=== PATIENT | male | born 1975 ===

== ENCOUNTER 2017-05-17 21:02 | Inpatient (IN) | payer MEDICAID ==
[2017-05-17 22:27] VITALS: BMI 34.4
--- NOTE | 2017-05-17 23:14 | ED PDOC ---
Lower Extremity Pain/Injury Time Seen by Provider: 05/17/17 22:47 Chief Complaint (Nursing): Lower Extremity Problem/Injury Chief Complaint (Provider): Right foot pain History Per: Family Onset/Duration Of Symptoms: Unknown Additional Complaint(s): History obtained from sisters and patient. Sisters report that the patient's history may be unreliable because of paranoid schizophrenia and pt may not be forthcoming with history. Foot pain moderate to severe for 1 week, constant and worsening, worse with touch. Associated with foul-smelling wound and swelling to toes. PMD Sancho Rueda [place]. Past Medical History Reviewed: Historical Data, Nursing Documentation, Vital Signs Vital Signs: Last Vital Signs Temp 98.7 F 05/17/17 22:28 Pulse 133 H 05/17/17 22:28 Resp 18 05/17/17 22:28 BP 100/70 05/17/17 22:28 Pulse Ox 98 05/17/17 22:28 - Medical History PMH: Diabetes, Schizophrenia - Surgical History Surgical History: No Surg Hx - Family History Family History: States: Diabetes, Hypertension - Social History Current smoker - smoking cessation education provided: Yes (Heavy) Alcohol: None Drugs: Denies - Allergies Allergies/Adverse Reactions: Allergies Allergy/AdvReac Type Severity Reaction Status Date / Time No Known Allergies Allergy Verified 05/17/17 22:27 Review of Systems ROS Statement: Except As Marked, All Systems Reviewed And Found Negative (and as per HPI) Constitutional: Positive for: Fever (subjective), Weakness, Malaise Musculoskeletal: Positive for: Foot Pain Skin: Positive for: Lesions Physical Exam - Reviewed Nursing Documentation Reviewed: Yes Vital Signs Reviewed: Yes - Physical Exam Appears: Positive for: Non-toxic, In Acute Distress (mild painful) Head Exam: Positive for: ATRAUMATIC, NORMOCEPHALIC Skin: Positive for: Warm, Dry Eye Exam: Positive for: EOMI, PERRL ENT: Negative for: Pharyngeal Erythema, Tonsillar Exudate Neck: Positive for: Painless ROM, Supple Cardiovascular/Chest: Positive for: Regular Rate, Rhythm. Negative for: Murmur Respiratory: Positive for: Normal Breath Sounds. Negative for: Wheezing, Respiratory Distress Gastrointestinal/Abdominal: Positive for: Soft. Negative for: Tenderness Back: Positive for: Normal Inspection. Negative for: Muscle Spasm Extremity: Positive for: Pedal Edema (bilateral lower leg trace), Other (RIGHT foot: toenail of great toe overgrown and curls around with edge against proximal 2nd toe, deep wound to 2nd toe with foul smelling discharge in wound, 2nd toe diffusely swollen tender and erythematous) Lymphatic: Positive for: Normal Exam Neurologic/Psych: Positive for: Alert. Negative for: Motor/Sensory Deficits - ECG O2 Sat by Pulse Oximetry: 98 Disposition - Disposition
[2017-05-17 23:50] LABS: VENOUS BLOOD GAS BASE EXCESS 1.7 mmol/L (0.0-2.0); VENOUS BLOOD GAS PCO2 45 mmHg (40-60); VENOUS BLOOD GAS PO2 36 mm/Hg (30-55); VENOUS BLOOD PH 7.39 (7.32-7.43)
[2017-05-17 23:52] LABS: BASO # 0.2 K/uL (0.0-0.2); BASO % 1.3 % (0.0-2.0); EOS # 0.2 K/uL (0.0-0.7); EOS % 1.7 % (0.0-4.0); HEMOGLOBIN 11.9 g/dL (12.0-18.0); LYMPH # 2.6 K/uL (1.0-4.3); LYMPH % 19.6 % (20.0-40.0); MEAN CELL VOLUME 83.7 fl (80.0-94.0); MEAN CORPUSCULAR HGB CONC 33.4 g/dL (33.0-37.0); MEAN PLATELET VOLUME 7.9 fl (7.2-11.7); MONO % 7.6 % (0.0-10.0); NEUT # 9.1 K/uL (1.8-7.0); NEUT % 69.8 % (50.0-75.0); RBC 4.27 Mil/uL (4.40-5.90); RED CELL DISTRIBUTION WIDTH 11.9 % (11.5-14.5); WHITE BLOOD COUNT 13.1 K/uL (4.8-10.8)
[2017-05-17 23:56] LABS: ALBUMIN 4.1 g/dL (3.5-5.0); ALT/SGPT 22 U/L (21-72); AST/SGOT 19 U/L (17-59); BLOOD UREA NITROGEN 22 mg/dl (9-20); CALCIUM 9.8 mg/dL (8.4-10.2); GFR AFRICAN-AMERICAN > 60; GFR NON-AFRICAN AMERICAN > 60
[2017-05-18] LABS: INR 1.2 (0.9-1.2); PARTIAL THROMBOPLASTIN TIME 41.6 Seconds (25.6-37.1); PROTHROMBIN TIME 13.1 Seconds (9.8-13.1)
[2017-05-18] MEDS ORDERED: Piperacillin/Tazobact 3.375 GM in Sodium Chloride 0.9% 100 ML IV STA (00:08)
--- NOTE | 2017-05-18 00:08 | CP.PCM.CON ---
History of Present Illness - History of Present Illness History of Present Illness: 41 y/o male seen at bedside in the ED for right foot infection. History obtained by sisters and patient. Patient has a pmhx of DM, paranoid schizophrenia. Patient states that his big toenail grew too long and was cutting in to his second toe. Patient states that the 2nd toe became very painful. The sisters report that the patients foot became very malodorous. Patient states that he has had the pain and foul odor for abuot 1 week. Patient denies any other pedal complaints at this time. Patient denies n/f/v/c/d/sob. Review of Systems - Constitutional Constitutional: As Per HPI Past Patient History - Past Social History Alcohol: None Drugs: Denies - PSYCHIATRIC Hx Schizophrenia: Yes Meds Allergies/Adverse Reactions: Allergies Allergy/AdvReac Type Severity Reaction Status Date / Time No Known Allergies Allergy Verified 05/17/17 22:27 Physical Exam - Constitutional Appears: Well, Non-toxic, No Acute Distress - Extremities Exam Additional comments: Vasc: palpable DP/PT pulses b/l, TG wnl, CFT < 3 sec to all digits neuro: grossly intact derm: edema and erythema localized to 2nd digit of right foot, open lesion noted to 2nd digit right foot measuring 1cm x 1.5cm with strong malodor, probe to tendon, negative probe to bone, fibrous base with hypertrophic edges, no active purulence, no ascending cellulitis, no accompanied fluctuance , elongated and dystrophic toenails x 10 ortho: unable to assess pain level due to patients mental capacity - Neurological Exam Neurological exam: Alert, Oriented x3 Results - Vital Signs Recent Vital Signs: Last Vital Signs Temp 98.7 F 05/17/17 22:28 Pulse 133 H 05/17/17 22:28 Resp 18 05/17/17 22:28 BP 100/70 05/17/17 22:28 Pulse Ox 98 05/17/17 23:22 - Labs Result Diagrams: 05/17/17 23:25 Labs: Laboratory Results - last 24 hr 05/17/17 05/17/17 05/17/17 23:25 23:25 23:32 PT 13.1 INR 1.2 APTT 41.6 H pO2 VBG pH VBG pCO2 VBG HCO3 VBG Total CO2 VBG O2 Sat (Calc) VBG Base Excess VBG Potassium Glucose Lactate FiO2 Sodium 136 Potassium 4.2 Chloride 98 Carbon Dioxide 25 Anion Gap 17 BUN 22 H Creatinine 1.0 Est GFR ( Amer) > 60 Est GFR (Non-Af Amer) > 60 POC Glucose (mg/dL) 295 H Random Glucose 302 H Calcium 9.8 Total Bilirubin 0.5 AST 19 ALT 22 Alkaline Phosphatase 67 Total Protein 8.0 Albumin 4.1 Globulin 3.9 Albumin/Globulin Ratio 1.0 Venous Blood Potassium 05/17/17 23:46 PT INR APTT pO2 36 VBG pH 7.39 VBG pCO2 45 VBG HCO3 25.5 VBG Total CO2 28.6 H VBG O2 Sat (Calc) 75.1 H VBG Base Excess 1.7 VBG Potassium 4.2 Glucose 311 H Lactate 2.2 H FiO2 21.0 Sodium 134.0 Potassium Chloride 99.0 Carbon Dioxide Anion Gap BUN Creatinine Est GFR ( Amer) Est GFR (Non-Af Amer) POC Glucose (mg/dL) Random Glucose Calcium Total Bilirubin AST ALT Alkaline Phosphatase Total Protein Albumin Globulin Albumin/Globulin Ratio Venous Blood Potassium 4.2 Assessment & Plan - Assessment and Plan (Free Text) Assessment: 41 y.o male with pmhx of DM and paranoid schizophrenia seen at bedside in the ED for right foot 2nd digit infection Plan: patient evaluated and chart reviewed discussed in detail with attending Dr. Matthews labs and vitals reviewed; WBC 13.1, afebrile Wound cx obtained x rays reviewed show right foot soft tissue swelling, no soft tissue emphysema f/u MRI to rule out OM patient to be admitted for IV abx applied betadine, DSD to right foot podiatry will continue to follow while patient remains in house
[2017-05-18] MEDS ORDERED: Glucagon Recombinant 1 mg Inj IM PRN (00:13)
[2017-05-18] MEDS ORDERED: Dextrose 50% SYRINGE Inj (50 ml) IV PRN (00:13)
[2017-05-18] MEDS ORDERED: Insulin Regular 100 units/ml SC STA (00:16)
[2017-05-18] MEDS ORDERED: Sodium Chloride 0.9% 1,000 ML IV STA (00:17)
[2017-05-18] MEDS ORDERED: Piperacillin/Tazobact 3.375 gm Inj IVPB ONE (00:26)
[2017-05-18] MEDS ORDERED: Piperacillin/Tazobact 3.375 GM in Sodium Chloride 0.9% 100 ML IVPB STA (00:42)
--- NOTE | 2017-05-18 07:24 | CP.PCM.HP ---
History of Present Illness - History of Present Illness History of Present Illness: pt admitted for rfoot great toe infection x 1 wk. no fc, n/v/d. bw noted. podiatry consult appriciated. denies trauma to the foot. no numbness/tingling/weakness.dsg c/d/i Present on Admission - Present on Admission Any Indicators Present on Admission: Yes History of Uncontrolled Diabetes: Yes Review of Systems - Integumentary Integumentary: As Per HPI Past Patient History - Past Medical History & Family History Past Medical History?: Yes - Past Social History Smoking Status: Light Smoker < 10 Cigarettes Daily - CARDIAC Hx Hypertension: Yes (in the past pt states) - ENDOCRINE/METABOLIC Hx Diabetes Mellitus Type 2: Yes - MUSCULOSKELETAL/RHEUMATOLOGICAL Hx Falls: No - PSYCHIATRIC Hx Paranoia: Yes Hx Schizophrenia: Yes Hx Substance Use: No - SURGICAL HISTORY Hx Surgeries: No - ANESTHESIA Hx Anesthesia: No Meds Allergies/Adverse Reactions: Allergies Allergy/AdvReac Type Severity Reaction Status Date / Time No Known Allergies Allergy Verified 05/17/17 22:27 Physical Exam - Constitutional Appears: Well, Non-toxic, No Acute Distress - Head Exam Head Exam: ATRAUMATIC, NORMAL INSPECTION, NORMOCEPHALIC - Eye Exam Eye Exam: EOMI, Normal appearance, PERRL Pupil Exam: NORMAL ACCOMODATION, PERRL - ENT Exam ENT Exam: Mucous Membranes Moist, Normal Exam - Neck Exam Neck exam: Positive for: Normal Inspection - Respiratory Exam Respiratory Exam: Clear to Auscultation Bilateral, NORMAL BREATHING PATTERN - Cardiovascular Exam Cardiovascular Exam: REGULAR RHYTHM - GI/Abdominal Exam GI & Abdominal Exam: Normal Bowel Sounds, Soft. absent: Tenderness - Extremities Exam Extremities exam: Positive for: full ROM, normal capillary refill, normal inspection, pedal pulses present - Expanded Lower Extremities Exam Right Foot/Toe exam: swelling - Back Exam Back exam: NORMAL INSPECTION Additional comments: dsgc/d/i - Neurological Exam Neurological exam: Alert, CN II-XII Intact, Normal Gait, Oriented x3, Reflexes Normal - Psychiatric Exam Psychiatric exam: Normal Affect, Normal Mood - Skin Skin Exam: Dry, Intact, Normal Color, Warm Results - Vital Signs Recent Vital Signs: Last Vital Signs Temp 97.7 F 05/18/17 04:03 Pulse 87 05/18/17 04:03 Resp 18 05/18/17 04:03 BP 111/74 05/18/17 04:03 Pulse Ox 96 05/18/17 04:03 - Labs Result Diagrams: 05/18/17 07:15 05/18/17 07:15 Labs: Laboratory Results - last 24 hr 05/17/17 05/17/17 05/17/17 23:25 23:25 23:25 WBC 13.1 H RBC 4.27 L Hgb 11.9 L Hct 35.8 MCV 83.7 MCH 28.0 MCHC 33.4 RDW 11.9 Plt Count 423 H MPV 7.9 Neut % (Auto) 69.8 Lymph % (Auto) 19.6 L [place] % (Auto) 7.6 Eos % (Auto) 1.7 Baso % (Auto) 1.3 Neut # (Auto) 9.1 H Lymph # (Auto) 2.6 [place] # (Auto) 1.0 H Eos # (Auto) 0.2 Baso # (Auto) 0.2 PT 13.1 INR 1.2 APTT 41.6 H pO2 VBG pH VBG pCO2 VBG HCO3 VBG Total CO2 VBG O2 Sat (Calc) VBG Base Excess VBG Potassium Glucose Lactate FiO2 Sodium 136 Potassium 4.2 Chloride 98 Carbon Dioxide 25 Anion Gap 17 BUN 22 H Creatinine 1.0 Est GFR ( Amer) > 60 Est GFR (Non-Af Amer) > 60 POC Glucose (mg/dL) Random Glucose 302 H Calcium 9.8 Total Bilirubin 0.5 AST 19 ALT 22 Alkaline Phosphatase 67 Total Protein 8.0 Albumin 4.1 Globulin 3.9 Albumin/Globulin Ratio 1.0 Venous Blood Potassium Blood Type Antibody Screen BBK History Checked 05/17/17 05/17/17 05/17/17 23:25 23:32 23:46 WBC RBC Hgb Hct MCV MCH MCHC RDW Plt Count MPV Neut % (Auto) Lymph % (Auto) [place] % (Auto) Eos % (Auto) Baso % (Auto) Neut # (Auto) Lymph # (Auto) [place] # (Auto) Eos # (Auto) Baso # (Auto) PT INR APTT pO2 36 VBG pH 7.39 VBG pCO2 45 VBG HCO3 25.5 VBG Total CO2 28.6 H VBG O2 Sat (Calc) 75.1 H VBG Base Excess 1.7 VBG Potassium 4.2 Glucose 311 H Lactate 2.2 H FiO2 21.0 Sodium 134.0 Potassium Chloride 99.0 Carbon Dioxide Anion Gap BUN Creatinine Est GFR ( Amer) Est GFR (Non-Af Amer) POC Glucose (mg/dL) 295 H Random Glucose Calcium Total Bilirubin AST ALT Alkaline Phosphatase Total Protein Albumin Globulin Albumin/Globulin Ratio Venous Blood Potassium 4.2 Blood Type O POSITIVE Antibody Screen Negative BBK History Checked No verified bt 05/18/17 05:30 WBC RBC Hgb Hct MCV MCH MCHC RDW Plt Count MPV Neut % (Auto) Lymph % (Auto) [place] % (Auto) Eos % (Auto) Baso % (Auto) Neut # (Auto) Lymph # (Auto) [place] # (Auto) Eos # (Auto) Baso # (Auto) PT INR APTT pO2 VBG pH VBG pCO2 VBG HCO3 VBG Total CO2 VBG O2 Sat (Calc) VBG Base Excess VBG Potassium Glucose Lactate FiO2 Sodium Potassium Chloride Carbon Dioxide Anion Gap BUN Creatinine Est GFR ( Amer) Est GFR (Non-Af Amer) POC Glucose (mg/dL) 150 H Random Glucose Calcium Total Bilirubin AST ALT Alkaline Phosphatase Total Protein Albumin Globulin Albumin/Globulin Ratio Venous Blood Potassium Blood Type Antibody Screen BBK History Checked Assessment & Plan (1) Diabetic foot infection Assessment and Plan: vanco/zosyn podiatry id as indicated mri Status: Acute (2) Diabetes type 2, uncontrolled Assessment and Plan: fsbg, home meds, diet control Status: Acute (3) Class 1 obesity with serious comorbidity and body mass index (BMI) of 34.0 to 34.9 in adult Assessment and Plan: diet control ouptt f/u Status: Acute (4) DVT prophylaxis Assessment and Plan: scd and ae hose ambulation Status: Acute Decision To Admit - Pt Status Changed To: Hospital Disposition Of: Inpatient - Admit Certification Admit to Inpatient:: After my assessment, the patient will require hospitalization for at least two midnights. This is because of the severity of symptoms shown, intensity of services needed, and/or the medical risk in this patient being treated as an outpatient. - . Bed Request Type: Med/Surg Admitting Physician: Alcides Roberts
[2017-05-18 07:51] LABS: BASO # 0.1 K/uL (0.0-0.2); BASO % 0.9 % (0.0-2.0); EOS # 0.4 K/uL (0.0-0.7); EOS % 4.1 % (0.0-4.0); HEMOGLOBIN 11.2 g/dL (12.0-18.0); LYMPH % 27.5 % (20.0-40.0); MEAN CORPUSCULAR HEMOGLOBIN 28.3 pg (27.0-31.0); MEAN CORPUSCULAR HGB CONC 34.1 g/dL (33.0-37.0); MEAN PLATELET VOLUME 7.5 fl (7.2-11.7); MONO # 1.2 K/uL (0.0-0.8); MONO % 11.2 % (0.0-10.0); NEUT # 6.1 K/uL (1.8-7.0); NEUT % 56.3 % (50.0-75.0); RBC 3.97 Mil/uL (4.40-5.90); RED CELL DISTRIBUTION WIDTH 11.7 % (11.5-14.5); WHITE BLOOD COUNT 10.8 K/uL (4.8-10.8)
[2017-05-18 08:05] LABS: ALBUMIN 3.6 g/dL (3.5-5.0); ALT/SGPT 23 U/L (21-72); AST/SGOT 22 U/L (17-59); BLOOD UREA NITROGEN 18 mg/dl (9-20); CALCIUM 9.2 mg/dL (8.4-10.2); GFR AFRICAN-AMERICAN > 60; GFR NON-AFRICAN AMERICAN > 60
[2017-05-18] MEDS: Divalproex 500 mg DR(BID formulation) PO SCH (08:35)
[2017-05-18] MEDS: Insulin Regular 100 units/ml SC SCH ×4 (08:36→22:14)
--- NOTE | 2017-05-18 09:43 | RAD ---
PROCEDURE: CHEST RADIOGRAPH, 1 VIEW HISTORY: placement COMPARISON: None available. FINDINGS: LUNGS: Clear. PLEURA: No pneumothorax or pleural fluid seen. CARDIOVASCULAR: Normal. OSSEOUS STRUCTURES: No significant abnormalities. VISUALIZED UPPER ABDOMEN: Normal. OTHER FINDINGS: None. IMPRESSION: No active disease.
--- NOTE | 2017-05-18 09:49 | RAD ---
PROCEDURE: Right Foot Radiographs. HISTORY: RIGHT foot swelling 1st/2nd toes COMPARISON: None. FINDINGS: BONES: Comminuted, relatively nondisplaced fractures of the distal aspect of the 2nd proximal phalanx and base of the 2nd middle phalanx. Irregular appearance of the 1st digit nailbed. JOINTS: Normal. SOFT TISSUES: Normal. OTHER FINDINGS: None. IMPRESSION: Comminuted, relatively nondisplaced fractures of the 2nd proximal and middle phalanges, flanking the interphalangeal joint. Intraarticular extension is suspected. Irregular appearance of the 1st digit nailbed. Patient admitted.
[2017-05-18] MEDS: Piperacillin/Tazobact 3.375 GM in Sodium Chloride 0.9% 100 ML IVPB SCH ×3 (09:54→22:15)
[2017-05-18] MEDS ORDERED: Oxycodone/Acetaminophen 5/325 mg Tab PO PRN (20:12)
[2017-05-19] MEDS: Piperacillin/Tazobact 3.375 GM in Sodium Chloride 0.9% 100 ML IVPB SCH ×4 (04:22→21:01)
[2017-05-19 06:21] LABS: BASO # 0.1 K/uL (0.0-0.2); BASO % 0.9 % (0.0-2.0); EOS # 0.5 K/uL (0.0-0.7); EOS % 4.6 % (0.0-4.0); HEMOGLOBIN 11.1 g/dL (12.0-18.0); LYMPH # 3.6 K/uL (1.0-4.3); LYMPH % 32.1 % (20.0-40.0); MEAN CELL VOLUME 84.1 fl (80.0-94.0); MEAN CORPUSCULAR HEMOGLOBIN 27.6 pg (27.0-31.0); MEAN CORPUSCULAR HGB CONC 32.8 g/dL (33.0-37.0); MEAN PLATELET VOLUME 7.4 fl (7.2-11.7); MONO % 9.4 % (0.0-10.0); NEUT # 5.9 K/uL (1.8-7.0); NRBC % 0.2 % (0.0-0.0); RBC 4.02 Mil/uL (4.40-5.90); RED CELL DISTRIBUTION WIDTH 11.7 % (11.5-14.5); WHITE BLOOD COUNT 11.1 K/uL (4.8-10.8)
[2017-05-19 06:35] LABS: ALBUMIN 3.6 g/dL (3.5-5.0); ALT/SGPT 26 U/L (21-72); AST/SGOT 40 U/L (17-59); BLOOD UREA NITROGEN 16 mg/dl (9-20); CALCIUM 9.2 mg/dL (8.4-10.2); GFR AFRICAN-AMERICAN > 60; GFR NON-AFRICAN AMERICAN > 60
[2017-05-19] MEDS: Insulin Regular 100 units/ml SC SCH ×4 (07:35→21:31)
--- NOTE | 2017-05-19 07:56 | MRI ---
MRI right foot History: Diabetic wound. Evaluate for osteomyelitis. Comparison: None available. Technique: Multi-echo multiplanar sequences were performed through the right forefoot without the use of intravenous contrast. Findings: Prominent soft tissue ulceration at the level of the 2nd digit centered at the 2nd PIP joint space. Marked signal abnormality seen within the 2nd proximal and middle phalanges with decreased T1 signal and increased STIR signal consistent with an acute osteomyelitis. Mild reactive edema seen at the base of the 2nd distal phalanx which may represent some early acute and or developing acute osteomyelitic changes. Mild hallux valgus deformity. Minimal nonspecific reactive edema at the 1st distal phalanx. Mild increased signal within the Lisfranc ligament which may represent a low grade sprain. Impression: Prominent soft tissue ulceration at the level of the 2nd digit centered at the 2nd PIP joint space. Marked signal abnormality seen within the 2nd proximal and middle phalanges with decreased T1 signal and increased STIR signal consistent with an acute osteomyelitis. Mild reactive edema seen at the base of the 2nd distal phalanx which may represent some early acute and or developing acute osteomyelitic changes. Mild hallux valgus deformity. Minimal nonspecific reactive edema at the 1st distal phalanx. Mild increased signal within the Lisfranc ligament which may represent a low grade sprain.
--- NOTE | 2017-05-19 07:58 | CP.PCM.PN ---
Subjective - Date & Time of Evaluation Date of Evaluation: 05/19/17 Time of Evaluation: 07:30 - Subjective Subjective: pt doing well. no f/c, n/v/d. had pain in foot but controlled w/ meds mri completed but no report. Objective - Vital Signs/Intake and Output Vital Signs (last 24 hours): Temp Pulse Resp BP Pulse Ox 99.5 F 98 H 20 112/74 96 05/19/17 00:28 05/19/17 00:28 05/19/17 00:28 05/19/17 00:28 05/19/17 00:28 - Medications Medications: Current Medications Benztropine Mesylate (Cogentin) 1 mg PO DAILY [facility] Last Admin: 05/18/17 08:35 Dose: 1 mg Dextrose (Dextrose 50% Inj) 0 ml IV STAT PRN; Protocol PRN Reason: Hypoglycemia Protocol Dextrose (Glutose 15) 0 gm PO ONCE PRN; Protocol PRN Reason: Hypoglycemia Protocol Divalproex Sodium (Depakote Dr(*Bid*)) 500 mg PO DAILY [facility] Last Admin: 05/18/17 08:35 Dose: 500 mg Glucagon (Glucagen Diagnostic Kit) 0 mg IM STAT PRN; Protocol PRN Reason: Hypoglycemia Protocol Vancomycin HCl 1 gm/ Sodium (Chloride) 250 mls @ 166.667 mls/hr IVPB Q12 [facility] PRN Reason: Protocol Last Admin: 05/18/17 20:30 Dose: 166.667 mls/hr Piperacillin Sod/Tazobactam (Sod 3.375 gm/ Sodium Chloride) 100 mls @ 100 mls/ hr IVPB Q6 [place] PRN Reason: Protocol Last Admin: 05/19/17 04:22 Dose: 100 mls/hr Insulin Human Regular (Humulin R) 0 units SC ACHS [place] PRN Reason: Protocol Last Admin: 05/19/17 07:35 Dose: Not Given Ketorolac Tromethamine (Toradol) 30 mg IVP Q6 PRN PRN Reason: Pain, moderate (4-7) Metformin HCl (Glucophage) 1,000 mg PO BID [facility] Last Admin: 05/18/17 16:39 Dose: 1,000 mg Oxycodone/Acetaminophen (Percocet 5/325 Mg Tab) 1 tab PO Q4 PRN PRN Reason: Pain, severe (8-10) Stop: 05/21/17 20:13 Last Admin: 05/18/17 20:29 Dose: 1 tab Risperidone (Risperdal Tab) 4 mg PO BID [facility] Last Admin: 05/18/17 16:39 Dose: 4 mg - Labs Labs: 05/19/17 06:00 05/19/17 06:00 PT 13.1 Seconds (9.8-13.1) 05/17/17 23:25 INR 1.2 (0.9-1.2) 05/17/17 23:25 APTT 41.6 Seconds (25.6-37.1) H 05/17/17 23:25 - Constitutional Appears: Well, Non-toxic, No Acute Distress - Head Exam Head Exam: ATRAUMATIC, NORMAL INSPECTION, NORMOCEPHALIC - Eye Exam Eye Exam: EOMI, Normal appearance, PERRL Pupil Exam: NORMAL ACCOMODATION, PERRL - ENT Exam ENT Exam: Mucous Membranes Moist, Normal Exam - Neck Exam Neck Exam: Full ROM, Normal Inspection. absent: Lymphadenopathy - Respiratory Exam Respiratory Exam: Clear to Ausculation Bilateral, NORMAL BREATHING PATTERN - Cardiovascular Exam Cardiovascular Exam: REGULAR RHYTHM, RRR, +S1, +S2. absent: Murmur - GI/Abdominal Exam GI & Abdominal Exam: Soft, Normal Bowel Sounds. absent: Tenderness - Extremities Exam Extremities Exam: Full ROM, Normal Capillary Refill, Normal Inspection. absent : Joint Swelling, Pedal Edema - Back Exam Back Exam: NORMAL INSPECTION - Neurological Exam Neurological Exam: Alert, Awake, CN II-XII Intact, Normal Gait, Oriented x3 - Psychiatric Exam Psychiatric exam: Normal Affect, Normal Mood - Skin Skin Exam: Dry, Intact, Normal Color, Warm Assessment and Plan (1) Diabetic foot infection Status: Acute (2) Diabetes type 2, uncontrolled Status: Acute (3) Class 1 obesity with serious comorbidity and body mass index (BMI) of 34.0 to 34.9 in adult Status: Acute (4) DVT prophylaxis Status: Acute - Assessment and Plan (Free Text) Assessment: (1) Diabetic foot infection Assessment and Plan: paulinao/sushma podiatry id as indicated mri-report pending Status: Acute (2) Diabetes type 2, uncontrolled Assessment and Plan: fsbg, home meds, diet control Status: Acute (3) Class 1 obesity with serious comorbidity and body mass index (BMI) of 34.0 to 34.9 in adult Assessment and Plan: diet control ouptt f/u Status: Acute (4) DVT prophylaxis Assessment and Plan: scd and ae hose ambulation Status: Acute
[2017-05-19] MEDS: Divalproex 500 mg DR(BID formulation) PO SCH (09:36)
--- NOTE | 2017-05-19 09:42 | CP.PCM.PN ---
Subjective - Date & Time of Evaluation Date of Evaluation: 05/19/17 Time of Evaluation: 09:00 - Subjective Subjective: Podiatry Progress NOte- Dr. Matthews 41 y/o male with PMH of DM and paranoid schizophrenia seen and evaluated at bedside for infected right 2nd digit. Patient is seen resting comfortably in bed , enjoying breakfast, and in NAD. Patient reports the same pain to the right foot. Patient denies n/v/sob/chills/calf pain or d. Patient reports he is an active smoker- 20 year smoker 6 cigarettes a day Objective - Vital Signs/Intake and Output Vital Signs (last 24 hours): Temp Pulse Resp BP Pulse Ox 99.5 F 98 H 20 112/74 96 05/19/17 00:28 05/19/17 00:28 05/19/17 00:28 05/19/17 00:28 05/19/17 00:28 - Medications Medications: Current Medications Benztropine Mesylate (Cogentin) 1 mg PO DAILY [facility] Last Admin: 05/19/17 09:36 Dose: 1 mg Dextrose (Dextrose 50% Inj) 0 ml IV STAT PRN; Protocol PRN Reason: Hypoglycemia Protocol Dextrose (Glutose 15) 0 gm PO ONCE PRN; Protocol PRN Reason: Hypoglycemia Protocol Divalproex Sodium (Depakohumphrey Dr(*Bid*)) 500 mg PO DAILY [facility] Last Admin: 05/19/17 09:36 Dose: 500 mg Glucagon (Glucagen Diagnostic Kit) 0 mg IM STAT PRN; Protocol PRN Reason: Hypoglycemia Protocol Vancomycin HCl 1 gm/ Sodium (Chloride) 250 mls @ 166.667 mls/hr IVPB Q12 [facility] PRN Reason: Protocol Last Admin: 05/19/17 09:38 Dose: 166.667 mls/hr Piperacillin Sod/Tazobactam (Sod 3.375 gm/ Sodium Chloride) 100 mls @ 100 mls/ hr IVPB Q6 [facility] PRN Reason: Protocol Last Admin: 05/19/17 09:39 Dose: 100 mls/hr Insulin Human Regular (Humulin R) 0 units SC ACHS [facility] PRN Reason: Protocol Last Admin: 05/19/17 07:35 Dose: Not Given Ketorolac Tromethamine (Toradol) 30 mg IVP Q6 PRN PRN Reason: Pain, moderate (4-7) Metformin HCl (Glucophage) 1,000 mg PO BID [facility] Last Admin: 05/19/17 09:37 Dose: 1,000 mg Oxycodone/Acetaminophen (Percocet 5/325 Mg Tab) 1 tab PO Q4 PRN PRN Reason: Pain, severe (8-10) Stop: 05/21/17 20:13 Last Admin: 05/18/17 20:29 Dose: 1 tab Risperidone (Risperdal Tab) 4 mg PO BID [facility] Last Admin: 05/19/17 09:37 Dose: 4 mg - Labs Labs: 05/19/17 06:00 05/19/17 06:00 PT 13.1 Seconds (9.8-13.1) 05/17/17 23:25 INR 1.2 (0.9-1.2) 05/17/17 23:25 APTT 41.6 Seconds (25.6-37.1) H 05/17/17 23:25 - Constitutional Appears: Well, Non-toxic, No Acute Distress - Extremities Exam Extremities Exam: absent: Calf Tenderness Additional comments: Vasc: palpable DP/PT pulses b/l, TG wnl, CFT < 3 sec to all digits neuro: grossly intact, protective sensation diminished derm: edema and erythema localized to 2nd digit of right foot, open lesion noted to 2nd digit right foot measuring 1cm x 1.5cm with strong malodor, probe to tendon, negative probe to bone, fibrous base with hypertrophic edges, no active purulence, no ascending cellulitis, no accompanied fluctuance ortho: pain with palpation to the right foot - Neurological Exam Neurological Exam: Alert, Awake, Oriented x3 Assessment and Plan - Assessment and Plan (Free Text) Assessment: 41 y/o male with PMH of DM and paranoid schizophrenia seen and evaluated at bedside for infected right 2nd digit ulceration with positive OM Plan: Patient is seen and evaluated Discussed plan in detail with attending Dr. Matthews Labs, charts, vitals reviewed MRI reviewed- OM of R 2nd digit Podiatry recommends amputation of 2nd digit given severely infected wound with OM Discussed plan with the patient and patient initially opted for conservative treatment with IV abx and local wound care. However patient changed mind with the discussion of family and is now opting for surgical intervention, amputation of the right 2nd digit. Spoke to patient and family at bedside. All questions and concerned addressed. ABIs ordered- pending results Patient will go to the OR for amputation of R 2nd digit secondary to OM pending medical clearance and ABIs Please provide medical clearance Thank you Podiatry will continue to follow patient while in house
--- NOTE | 2017-05-19 17:02 | CP.PCM.CON ---
History of Present Illness - History of Present Illness History of Present Illness: 41 y/o male seen at bedside in the ED for right foot infection. History obtained by sisters and patient. Patient has a pmhx of DM, paranoid schizophrenia. Patient states that his big toenail grew too long and was cutting in to his second toe. Patient states that the 2nd toe became very painful. The sisters report that the patients foot became very malodorous. Patient states that he has had the pain and foul odor for abuot 1 week. Patient denies any other pedal complaints at this time. Patient denies n/f/v/c/d/sob. Review of Systems - Review of Systems All systems: reviewed and no additional remarkable complaints except - Constitutional Constitutional: As Per HPI - EENT Eyes: absent: As Per HPI, Blind Spots, Blurred Vision, Change in Vision, Decreased Night Vision, Diplopia, Discharge, Dry Eye, Exophthalmos, Floaters, Irritation, Itchy Eyes, Loss of Peripheral Vision, Pain, Photophobia, Requires Corrective Lenses, Sees Flashes, Spots in Vision, Tunnel Vision, Other Visual Disturbances, Loss of Vision, Other Ears: absent: As Per HPI, Decreased Hearing, Ear Discharge, Ear Pain, Tinnitus, Abnormal Hearing, Disequilibrium, Dizziness, Other Nose/Mouth/Throat: absent: As Per HPI, Epistaxis, Nasal Congestion, Nasal Discharge, Nasal Obstruction, Nasal Trauma, Nose Pain, Post Nasal Drip, Sinus Pain, Sinus Pressure, Bleeding Gums, Change in Voice, Dental Pain, Dry Mouth, Dysphagia, Halitosis, Hoarsness, Lip Swelling, Mouth Lesions, Mouth Pain, Odynophagia, Sore Throat, Throat Swelling, Tongue Swelling, Facial Pain, Neck Pain, Neck Mass, Other - Cardiovascular Cardiovascular: absent: As Per HPI, Acrocyanosis, Chest Pain, Chest Pain at Rest , Chest Pain with Activity, Claudication, Diaphoresis, Dyspnea, Dyspnea on Exertion, Edema, Irregular Heart Rhythm, Pain Radiating to Arm/Neck/Jaw, Leg Edema, Leg Ulcers, Lightheadedness, Orthopnea, Palpitations, Paroxysmal Nocturnal Dyspnea, Pedal Edema, Radiating Pain, Rapid Heart Rate, Slow Heart Rate, Syncope, Other - Respiratory Respiratory: absent: As Per HPI, Cough, Dyspnea, Hemoptysis, Dyspnea on Exertion , Wheezing, Snoring, Stridor, Pain on Inspiration, Chest Congestion, Excessive Mucous Production, Change in Mucous Color, Pain with Coughing, Other - Gastrointestinal Gastrointestinal: absent: As Per HPI, Abdominal Pain, Belching, Bloating, Change in Bowel Habits, Change in Stool Character, Coffee Ground Emesis, Constipation, Cramping, Diarrhea, Dyspepsia, Dysphagia, Early Satiety, Excessive Flatus, Fecal Incontinence, Heartburn, Hematemesis, Hematochezia, Loose Stools, Melena, Nausea, Odynophagia, Temesmus, Vomiting, Other - Genitourinary Genitourinary: absent: As Per HPI, Change in Urinary Stream, Difficulty Urinating, Dysuria, Flank Pain, Hematuria, Pyuria, Nocturia, Urinary Incontinence, Urinary Frequency, Urinary Hesitance, Urinary Urgency, Voiding Freq/Small Amts, Freq UTI, Hx Renal/Bladder Calculi, Hx /Renal Surgery, Bladder Distension, Other - Reproductive: Male Reproductive:Male: As Per HPI, Prepubesant, Dyspareunia, Genital Lesions, Genital Pruritis, Pelvic Pain, Sexual Dysfunction, Penile Discharge, Genital Odor, Impotence, On ED Medications, Penile Implant, Other - Musculoskeletal Musculoskeletal: As Per HPI - Integumentary Integumentary: As Per HPI. absent: Skin Pain, Wounds - Neurological Neurological: As Per HPI, Paresthesias - Psychiatric Psychiatric: absent: As Per HPI, Abnormal Sleep Pattern, Anhedonia, Anxiety, Auditory Hallucinations, Behavioral Changes, Change in Appetite, Change in Libido, Confusion, Depression, Difficulty Concentrating, Hallucinations, Homicidal Ideation, Hopelessness, Irritability, Memory Loss, Mood Swings, Panic Attacks, Paranoia, Suicidal Ideation, Visual Hallucinations, Tactile Hallucinations, Other - Endocrine Endocrine: absent: As Per HPI, Change in Body Appearance, Change in Libido, Cold Intolorance, Deepening of Voice, Excessive Sweating, Fatigue, Flushing, Heat Intolorance, Increase in Ring/Shoe/Hat Size, Palpitations, Polydipsia, Polyphagia, Polyuria, Other - Hematologic/Lymphatic Hematologic: absent: As Per HPI, Easy Bleeding, Easy Bruising, Lymphadenopathy, Other Past Patient History - Past Medical History & Family History Past Medical History?: Yes - Past Social History Smoking Status: Light Smoker < 10 Cigarettes Daily - CARDIAC Hx Hypertension: Yes (in the past pt states) - ENDOCRINE/METABOLIC Hx Diabetes Mellitus Type 2: Yes - MUSCULOSKELETAL/RHEUMATOLOGICAL Hx Falls: No - PSYCHIATRIC Hx Paranoia: Yes Hx Schizophrenia: Yes Hx Substance Use: No - SURGICAL HISTORY Hx Surgeries: No - ANESTHESIA Hx Anesthesia: No Meds Allergies/Adverse Reactions: Allergies Allergy/AdvReac Type Severity Reaction Status Date / Time No Known Allergies Allergy Verified 05/17/17 22:27 - Medications Medications: Current Medications Benztropine Mesylate (Cogentin) 1 mg PO DAILY [facility] Last Admin: 05/19/17 09:36 Dose: 1 mg Dextrose (Dextrose 50% Inj) 0 ml IV STAT PRN; Protocol PRN Reason: Hypoglycemia Protocol Dextrose (Glutose 15) 0 gm PO ONCE PRN; Protocol PRN Reason: Hypoglycemia Protocol Divalproex Sodium (Depakote Dr(*Bid*)) 500 mg PO DAILY [facility] Last Admin: 05/19/17 09:36 Dose: 500 mg Glucagon (Glucagen Diagnostic Kit) 0 mg IM STAT PRN; Protocol PRN Reason: Hypoglycemia Protocol Vancomycin HCl 1 gm/ Sodium (Chloride) 250 mls @ 166.667 mls/hr IVPB Q12 [facility] PRN Reason: Protocol Last Admin: 05/19/17 09:38 Dose: 166.667 mls/hr Piperacillin Sod/Tazobactam (Sod 3.375 gm/ Sodium Chloride) 100 mls @ 100 mls/ hr IVPB Q6 [place] PRN Reason: Protocol Last Admin: 05/19/17 16:51 Dose: 100 mls/hr Insulin Human Regular (Humulin R) 0 units SC ACHS [place] PRN Reason: Protocol Last Admin: 05/19/17 16:42 Dose: Not Given Ketorolac Tromethamine (Toradol) 30 mg IVP Q6 PRN PRN Reason: Pain, moderate (4-7) Metformin HCl (Glucophage) 1,000 mg PO BID [facility] Last Admin: 05/19/17 16:42 Dose: 1,000 mg Oxycodone/Acetaminophen (Percocet 5/325 Mg Tab) 1 tab PO Q4 PRN PRN Reason: Pain, severe (8-10) Stop: 05/21/17 20:13 Last Admin: 05/18/17 20:29 Dose: 1 tab Risperidone (Risperdal Tab) 4 mg PO BID [facility] Last Admin: 05/19/17 16:43 Dose: 4 mg Physical Exam - Constitutional Appears: Non-toxic, Chronically Ill - Head Exam Head Exam: NORMOCEPHALIC - Eye Exam Eye Exam: PERRL. absent: Scleral icterus - ENT Exam ENT Exam: Mucous Membranes Dry, Mucous Membranes Moist, Normal External Ear Exam - Neck Exam Neck exam: Negative for: Lymphadenopathy - Respiratory Exam Respiratory Exam: Decreased Breath Sounds, Clear to Auscultation Bilateral. absent: Rhonchi, Wheezes - Cardiovascular Exam Cardiovascular Exam: REGULAR RHYTHM, +S1, +S2 - GI/Abdominal Exam GI & Abdominal Exam: Diminished Bowel Sounds, Soft. absent: Pulsatile Mass, Rebound, Rigid, Tenderness - Rectal Exam Rectal Exam: Deferred - Exam Exam: NORMAL INSPECTION - Extremities Exam Extremities exam: Positive for: pedal pulses present. Negative for: calf tenderness, pedal edema, tenderness Additional comments: + gangrene toe right foot - Back Exam Back exam: absent: CVA tenderness (L), CVA tenderness (R), paraspinal tenderness , vertebral tenderness - Neurological Exam Neurological exam: Alert, CN II-XII Intact, Oriented x3, Reflexes Normal - Psychiatric Exam Psychiatric exam: Anxious, Normal Mood - Skin Skin Exam: Dry, Intact Results - Vital Signs Recent Vital Signs: Last Vital Signs Temp 99.2 F 05/19/17 16:14 Pulse 91 H 05/19/17 16:14 Resp 20 05/19/17 16:14 BP 120/78 05/19/17 16:14 Pulse Ox 97 05/19/17 16:14 - Labs Result Diagrams: 05/19/17 06:00 05/19/17 06:00 Labs: Laboratory Results - last 24 hr 05/18/17 05/19/17 05/19/17 21:38 05:54 06:00 WBC 11.1 H RBC 4.02 L Hgb 11.1 L Hct 33.8 L MCV 84.1 MCH 27.6 MCHC 32.8 L RDW 11.7 Plt Count 408 H MPV 7.4 Neut % (Auto) 53.0 Lymph % (Auto) 32.1 Hubbard % (Auto) 9.4 Eos % (Auto) 4.6 H Baso % (Auto) 0.9 Neut # (Auto) 5.9 Lymph # (Auto) 3.6 Hubbard # (Auto) 1.0 H Eos # (Auto) 0.5 Baso # (Auto) 0.1 Sodium Potassium Chloride Carbon Dioxide Anion Gap BUN Creatinine Est GFR ( Amer) Est GFR (Non-Af Amer) POC Glucose (mg/dL) 137 H 148 H Random Glucose Calcium Total Bilirubin AST ALT Alkaline Phosphatase Total Protein Albumin Globulin Albumin/Globulin Ratio 05/19/17 05/19/17 05/19/17 06:00 11:15 15:45 WBC RBC Hgb Hct MCV MCH MCHC RDW Plt Count MPV Neut % (Auto) Lymph % (Auto) Hubbard % (Auto) Eos % (Auto) Baso % (Auto) Neut # (Auto) Lymph # (Auto) Hubbard # (Auto) Eos # (Auto) Baso # (Auto) Sodium 142 Potassium 4.2 Chloride 103 Carbon Dioxide 25 Anion Gap 18 BUN 16 Creatinine 0.8 Est GFR ( Amer) > 60 Est GFR (Non-Af Amer) > 60 POC Glucose (mg/dL) 222 H 143 H Random Glucose 148 H Calcium 9.2 Total Bilirubin 0.4 AST 40 ALT 26 Alkaline Phosphatase 56 Total Protein 7.4 Albumin 3.6 Globulin 3.8 Albumin/Globulin Ratio 1.0 Assessment & Plan (1) Class 1 obesity with serious comorbidity and body mass index (BMI) of 34.0 to 34.9 in adult Status: Acute (2) DVT prophylaxis Status: Acute (3) Diabetes type 2, uncontrolled Status: Acute (4) Diabetic foot infection Status: Acute - Assessment and Plan (Free Text) Assessment: Acute OM right 2nd TOE in a 41 yo diabretic male with schizophrenia options include fdc iv rx ( empiric) vs amputation with abbreviated rx if surgery done please send bone cultures If IV rx chosen will likely need YARED for maint of PICC
--- NOTE | 2017-05-19 20:15 | US ---
EXAM: US Duplex Right Lower Extremity Arteries EXAM DATE/TIME: 05/19/2017 3:04 PM CLINICAL HISTORY: 41 years old, male; Condition or disease; Peripheral vascular disease; Additional info: R/O pvd, will go for digital amputation in future TECHNIQUE: Real-time ultrasound scan of the arteries of the right lower extremity with 2-D samano scale, color Doppler flow and spectral waveform analysis. COMPARISON: No relevant prior studies available. FINDINGS: Right common femoral artery: Demonstrates triphasic flow. Peak systolic velocity is 124 cm/s. Right superficial femoral artery: Demonstrates triphasic flow. There is spectral broadening. Peak systolic velocities are as follows: proximal SFA: 71 cm/s; mid SFA: 70 cm/s; distal SFA: 91 cm per sec. Right popliteal artery: Demonstrates triphasic flow. Peak systolic velocity is 101 cm/s. Right anterior tibial artery: Demonstrates monophasic flow. Peak systolic velocity is 74 cm/s Right posterior tibial artery: Demonstrates monophasic flow. Peak systolic velocity is 70 cm/s. Right dorsalis pedis artery: Demonstrates monophasic flow. Peak systolic velocity is 84 cm/s. Multiple enlarged lymph nodes incidentally noted in the right groin. The largest measures 5.7 x 2.5 x 1.7 cm. These have echogenic, fatty gui, and they may be reactive in etiology. IMPRESSION: No evidence of occlusion. Abnormal monophasic waveforms in the infrapopliteal (calf and foot) arteries. See above for remaining findings.
[2017-05-20] MEDS: Piperacillin/Tazobact 3.375 GM in Sodium Chloride 0.9% 100 ML IVPB SCH ×3 (05:07→16:02)
[2017-05-20 06:22] LABS: BASO # 0.1 K/uL (0.0-0.2); BASO % 0.8 % (0.0-2.0); EOS # 0.7 K/uL (0.0-0.7); EOS % 5.6 % (0.0-4.0); HEMOGLOBIN 10.6 g/dL (12.0-18.0); LYMPH # 3.6 K/uL (1.0-4.3); LYMPH % 29.4 % (20.0-40.0); MEAN CELL VOLUME 83.1 fl (80.0-94.0); MEAN CORPUSCULAR HEMOGLOBIN 28.2 pg (27.0-31.0); MEAN CORPUSCULAR HGB CONC 33.9 g/dL (33.0-37.0); MEAN PLATELET VOLUME 7.5 fl (7.2-11.7); MONO # 0.8 K/uL (0.0-0.8); MONO % 6.9 % (0.0-10.0); NEUT # 7.1 K/uL (1.8-7.0); NEUT % 57.3 % (50.0-75.0); NRBC % 0.1 % (0.0-0.0); RBC 3.78 Mil/uL (4.40-5.90); RED CELL DISTRIBUTION WIDTH 11.7 % (11.5-14.5); WHITE BLOOD COUNT 12.4 K/uL (4.8-10.8)
[2017-05-20 06:31] LABS: ALB/GLOB RATIO 0.9 (1.0-2.1); ALBUMIN 3.5 g/dL (3.5-5.0); ALT/SGPT 16 U/L (21-72); AST/SGOT 17 U/L (17-59); BLOOD UREA NITROGEN 12 mg/dl (9-20); CALCIUM 9.1 mg/dL (8.4-10.2); GFR AFRICAN-AMERICAN > 60; GFR NON-AFRICAN AMERICAN > 60
[2017-05-20 06:44] LABS: PARTIAL THROMBOPLASTIN TIME 39.3 Seconds (25.6-37.1); PROTHROMBIN TIME 11.4 Seconds (9.8-13.1)
[2017-05-20] MEDS: Insulin Regular 100 units/ml SC SCH ×3 (07:27→16:02)
--- NOTE | 2017-05-20 08:06 | CP.PCM.PN ---
Subjective - Date & Time of Evaluation Date of Evaluation: 05/20/17 Time of Evaluation: 08:04 - Subjective Subjective: ptdoing well. no f/c, n/v/d. r [id number] digit om. pending dispo by podiatry picc placement bw noted. Objective - Vital Signs/Intake and Output Vital Signs (last 24 hours): Temp Pulse Resp BP Pulse Ox 98.6 F 81 20 131/81 99 05/20/17 00:29 05/20/17 00:29 05/20/17 00:29 05/20/17 00:05/20/17 00:29 - Medications Medications: Current Medications Benztropine Mesylate (Cogentin) 1 mg PO DAILY [facility] Last Admin: 05/19/17 09:36 Dose: 1 mg Dextrose (Dextrose 50% Inj) 0 ml IV STAT PRN; Protocol PRN Reason: Hypoglycemia Protocol Dextrose (Glutose 15) 0 gm PO ONCE PRN; Protocol PRN Reason: Hypoglycemia Protocol Divalproex Sodium (Depakote Dr(*Bid*)) 500 mg PO DAILY [facility] Last Admin: 05/19/17 09:36 Dose: 500 mg Glucagon (Glucagen Diagnostic Kit) 0 mg IM STAT PRN; Protocol PRN Reason: Hypoglycemia Protocol Vancomycin HCl 1 gm/ Sodium (Chloride) 250 mls @ 166.667 mls/hr IVPB Q12 [place] PRN Reason: Protocol Last Admin: 05/19/17 21:11 Dose: 166.667 mls/hr Piperacillin Sod/Tazobactam (Sod 3.375 gm/ Sodium Chloride) 100 mls @ 100 mls/ hr IVPB Q6 [place] PRN Reason: Protocol Last Admin: 05/20/17 05:07 Dose: 100 mls/hr Insulin Human Regular (Humulin R) 0 units SC ACHS [place] PRN Reason: Protocol Last Admin: 05/20/17 07:27 Dose: Not Given Ketorolac Tromethamine (Toradol) 30 mg IVP Q6 PRN PRN Reason: Pain, moderate (4-7) Metformin HCl (Glucophage) 1,000 mg PO BID [facility] Last Admin: 05/19/17 16:42 Dose: 1,000 mg Oxycodone/Acetaminophen (Percocet 5/325 Mg Tab) 1 tab PO Q4 PRN PRN Reason: Pain, severe (8-10) Stop: 05/21/17 20:13 Last Admin: 05/18/17 20:29 Dose: 1 tab Risperidone (Risperdal Tab) 4 mg PO BID [facility] Last Admin: 05/19/17 16:43 Dose: 4 mg - Labs Labs: 05/20/17 06:00 05/20/17 06:00 PT 11.4 Seconds (9.8-13.1) 05/20/17 06:00 INR 1.0 (0.9-1.2) 05/20/17 06:00 APTT 39.3 Seconds (25.6-37.1) H 05/20/17 06:00 - Constitutional Appears: Well, Non-toxic, No Acute Distress - Head Exam Head Exam: ATRAUMATIC, NORMAL INSPECTION, NORMOCEPHALIC - Eye Exam Eye Exam: EOMI, Normal appearance, PERRL Pupil Exam: NORMAL ACCOMODATION, PERRL - ENT Exam ENT Exam: Mucous Membranes Moist, Normal Exam - Neck Exam Neck Exam: Full ROM, Normal Inspection. absent: Lymphadenopathy - Respiratory Exam Respiratory Exam: Clear to Ausculation Bilateral, NORMAL BREATHING PATTERN - Cardiovascular Exam Cardiovascular Exam: REGULAR RHYTHM, RRR, +S1, +S2. absent: Murmur - GI/Abdominal Exam GI & Abdominal Exam: Soft, Normal Bowel Sounds. absent: Tenderness - Extremities Exam Extremities Exam: Full ROM, Normal Capillary Refill, Normal Inspection. absent : Joint Swelling, Pedal Edema - Back Exam Back Exam: NORMAL INSPECTION - Neurological Exam Neurological Exam: Alert, Awake, CN II-XII Intact, Normal Gait, Oriented x3 - Psychiatric Exam Psychiatric exam: Normal Affect, Normal Mood - Skin Skin Exam: Dry, Intact, Normal Color, Warm - Additional Findings Additional findings: r foot 2nd digit ulceration, skin in hyperpigmented Assessment and Plan (1) Diabetic foot infection Status: Acute (2) Diabetes type 2, uncontrolled Status: Acute (3) Class 1 obesity with serious comorbidity and body mass index (BMI) of 34.0 to 34.9 in adult Status: Acute (4) DVT prophylaxis Status: Acute - Assessment and Plan (Free Text) Assessment: (1) Diabetic foot infection Assessment and Plan: vanco/joann podiatry id as indicated pending surgical decision piccplacement Status: Acute (2) Diabetes type 2, uncontrolled Assessment and Plan: fsbg, home meds, diet control Status: Acute (3) Class 1 obesity with serious comorbidity and body mass index (BMI) of 34.0 to 34.9 in adult Assessment and Plan: diet control ouptt f/u Status: Acute (4) DVT prophylaxis Assessment and Plan: scd and ae hose ambulation Status: Acute
[2017-05-20] MEDS: Divalproex 500 mg DR(BID formulation) PO SCH (08:52)
[2017-05-20] MEDS ORDERED: Lidocaine Hydrochloride 1% 10 ML ONE (10:24)
--- NOTE | 2017-05-20 10:51 | PCM.SURG1 ---
Surgeon's Initial Post Op Note - Surgeon's Notes Surgeon: Todd Prieto MD Gripper Machine Operator: None Type of Anesthesia: Local Pre-Operative Diagnosis: osteomyelitis Operative Findings: patent right basilic vein. catheter length: 41 cm. catheter tip: cavoatrial junction Post-Operative Diagnosis: same Operation Performed: RUE PICC Insertion Specimen/Specimens Removed: n/a Estimated Blood Loss: EBL {In ML}: 0 Date of Surgery/Procedure: 05/20/17 Time of Surgery/Procedure: 10:30
--- NOTE | 2017-05-20 11:53 | CP.PCM.PN ---
Subjective - Date & Time of Evaluation Date of Evaluation: 05/20/17 Time of Evaluation: 09:00 - Subjective Subjective: Podiatry Progress NOte- Dr. Matthews 41 y/o male with PMH of DM and paranoid schizophrenia seen and evaluated at bedside for infected right 2nd digit ulcer with positive OM. Patient is seen resting comfortably in bed, in NAD, and AA0x3. Patient reports the same pain to the right foot. Patient denies n/v/sob/chills/calf pain or d. Discussed plan in detail with patient. Patient is agreeable to amputation of the right 2nd digit. All questions/concerns addressed. No new pedal complaints Objective - Vital Signs/Intake and Output Vital Signs (last 24 hours): Temp Pulse Resp BP Pulse Ox 98.1 F 88 18 138/66 99 05/20/17 10:46 05/20/17 10:46 05/20/17 10:46 05/20/17 10:46 05/20/17 10:46 - Medications Medications: Current Medications Benztropine Mesylate (Cogentin) 1 mg PO DAILY [facility] Last Admin: 05/20/17 08:52 Dose: 1 mg Dextrose (Dextrose 50% Inj) 0 ml IV STAT PRN; Protocol PRN Reason: Hypoglycemia Protocol Dextrose (Glutose 15) 0 gm PO ONCE PRN; Protocol PRN Reason: Hypoglycemia Protocol Divalproex Sodium (Depakote Dr(*Bid*)) 500 mg PO DAILY [facility] Last Admin: 05/20/17 08:52 Dose: 500 mg Glucagon (Glucagen Diagnostic Kit) 0 mg IM STAT PRN; Protocol PRN Reason: Hypoglycemia Protocol Vancomycin HCl 1 gm/ Sodium (Chloride) 250 mls @ 166.667 mls/hr IVPB Q12 [place] PRN Reason: Protocol Last Admin: 05/20/17 08:52 Dose: 166.667 mls/hr Piperacillin Sod/Tazobactam (Sod 3.375 gm/ Sodium Chloride) 100 mls @ 100 mls/ hr IVPB Q6 [place] PRN Reason: Protocol Last Admin: 05/20/17 11:43 Dose: 100 mls/hr Insulin Human Regular (Humulin R) 0 units SC ACHS [facility] PRN Reason: Protocol Last Admin: 05/20/17 11:43 Dose: 4 units Ketorolac Tromethamine (Toradol) 30 mg IVP Q6 PRN PRN Reason: Pain, moderate (4-7) Metformin HCl (Glucophage) 1,000 mg PO BID [facility] Last Admin: 05/20/17 08:52 Dose: 1,000 mg Oxycodone/Acetaminophen (Percocet 5/325 Mg Tab) 1 tab PO Q4 PRN PRN Reason: Pain, severe (8-10) Stop: 05/21/17 20:13 Last Admin: 05/18/17 20:29 Dose: 1 tab Risperidone (Risperdal Tab) 4 mg PO BID [facility] Last Admin: 05/20/17 08:52 Dose: 4 mg - Labs Labs: 05/20/17 06:00 05/20/17 06:00 PT 11.4 Seconds (9.8-13.1) 05/20/17 06:00 INR 1.0 (0.9-1.2) 05/20/17 06:00 APTT 39.3 Seconds (25.6-37.1) H 05/20/17 06:00 - Constitutional Appears: Well, Non-toxic, No Acute Distress - Extremities Exam Extremities Exam: absent: Calf Tenderness Additional comments: Vasc: palpable DP/PT pulses b/l, TG wnl, CFT < 3 sec to all digits neuro: grossly intact, protective sensation diminished derm: edema and erythema localized to 2nd digit of right foot, open lesion noted to 2nd digit right foot measuring 1cm x 1.5cm with strong malodor, probe to tendon, negative probe to bone, fibrous base with hypertrophic edges, nild active purulence about .5 cc expressed from ulceration, no ascending cellulitis , no accompanied fluctuance ortho: pain with palpation to the right foot - Neurological Exam Neurological Exam: Alert, Awake, Oriented x3 Assessment and Plan - Assessment and Plan (Free Text) Assessment: 41 y/o male with PMH of DM and paranoid schizophrenia seen and evaluated at bedside for infected right 2nd digit ulceration with positive OM Plan: Patient is seen and evaluated Discussed plan in detail with attending Dr. Matthews Labs, charts, vitals reviewed MRI reviewed- OM 2nd proximal and middle phalanx, and developing or early OM of 2nd distal phalanx Podiatry recommends amputation of 2nd digit given severely infected wound with OM Patient is opting for surgical intervention, amputation of the right 2nd digit. SKYE- no evidence of occlusion. Abnormal monophasic waveforms in the infrapopliteal calf and foot arteries. Patient will go to the OR for amputation of R 2nd digit secondary to OM on Wednesday with Dr. Matthews Please provide medical clearance, thank you Will continue to follow while in house
--- NOTE | 2017-05-20 12:09 | VASCULAR ---
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 COMPARISON: None. PROCEDURE: 1. Focused ultrasound of the right upper extremity vasculature. 2. Ultrasound-guided access. 3. Insertion of peripherally inserted central venous catheter. 4. Fluoroscopic localization of catheter tip. PRE-PROCEDURE FINDINGS: 1. Patent right basilic vein. POST-PROCEDURE FINDINGS: 1. Placement of 4 Georgian single-lumen PICC. 2. Catheter length: 41 cm. 3. Catheter tip at cavoatrial junction. INTERVENTIONAL RADIOLOGIST: Todd Prieto M.D. (the attending was present for the entire procedure) ANESTHESIA: None. MEDICATION: Lidocaine 1% for local subcutaneous analgesia. COMPLICATIONS: None. RADIATION DOSE: Fluoroscopy Time: 9.8 seconds Cumulative Dose: 1.75 mGy PROCEDURE DESCRIPTION AND FINDINGS: The risks, benefits, alternatives and possible complications of the procedure were fully discussed; all questions were answered and informed consent was obtained. The patient was brought into the interventional suite and a pre-procedure 'time-out' was performed. The patient was placed on the fluoroscopy table in the supine position. The right upper extremity was prepped and draped in the usual sterile fashion. Maximum sterile barrier precautions were maintained throughout the entire procedure. Preliminary ultrasound images of the right upper extremity vasculature demonstrate patency of the right basilic vein. Following subcutaneous infiltration of 1% lidocaine for local analgesia, under ultrasound guidance, a 21-gauge needle was advanced into the right basilic vein with real-time visualization of needle entry. The ultrasound images were permanently recorded and submitted to the PACS. A 0.018 guidewire was advanced centrally to the cavoatrial junction. A 4.5 Georgian peel-away sheath was advanced over the guidewire. After obtaining length measurement, a 4 Georgian single-lumen PICC was placed with the tip of the catheter at the cavoatrial junction. The total length of the catheter is 41 cm. The hub of the PICC was secured to the skin using a sterile adhesive bandage. The patient tolerated the procedure well without immediate post-procedure complications and was transferred back to the floor in stable condition. IMPRESSION: SUCCESSFUL INSERTION OF RIGHT UPPER EXTREMITY PICC. PICC OK TO USE.
[2017-05-20 15:51] VITALS: BP 127/72; PULSE 85; RESP 20; TEMP 98.3; O2SAT 97
--- NOTE | 2017-05-20 17:06 | CP.PCM.PN ---
Subjective - Date & Time of Evaluation Date of Evaluation: 05/20/17 Time of Evaluation: 08:00 - Subjective Subjective: discussed on rounds Objective - Vital Signs/Intake and Output Vital Signs (last 24 hours): Temp Pulse Resp BP Pulse Ox 98.3 F 85 20 127/72 97 05/20/17 15:50 05/20/17 15:50 05/20/17 15:50 05/20/17 15:50 05/20/17 15:50 - Medications Medications: Current Medications Benztropine Mesylate (Cogentin) 1 mg PO DAILY [facility] Last Admin: 05/20/17 08:52 Dose: 1 mg Dextrose (Dextrose 50% Inj) 0 ml IV STAT PRN; Protocol PRN Reason: Hypoglycemia Protocol Dextrose (Glutose 15) 0 gm PO ONCE PRN; Protocol PRN Reason: Hypoglycemia Protocol Divalproex Sodium (Depakote Dr(*Bid*)) 500 mg PO DAILY [facility] Last Admin: 05/20/17 08:52 Dose: 500 mg Glucagon (Glucagen Diagnostic Kit) 0 mg IM STAT PRN; Protocol PRN Reason: Hypoglycemia Protocol Vancomycin HCl 1 gm/ Sodium (Chloride) 250 mls @ 166.667 mls/hr IVPB Q12 [facility] PRN Reason: Protocol Last Admin: 05/20/17 08:52 Dose: 166.667 mls/hr Piperacillin Sod/Tazobactam (Sod 3.375 gm/ Sodium Chloride) 100 mls @ 100 mls/ hr IVPB Q6 [place] PRN Reason: Protocol Last Admin: 05/20/17 16:02 Dose: 100 mls/hr Insulin Detemir (Levemir) 10 units SC HS [facility] Insulin Human Regular (Humulin R) 0 units SC ACHS [facility] PRN Reason: Protocol Last Admin: 05/20/17 16:02 Dose: 8 units Ketorolac Tromethamine (Toradol) 30 mg IVP Q6 PRN PRN Reason: Pain, moderate (4-7) Metformin HCl (Glucophage) 1,000 mg PO BID [facility] Last Admin: 05/20/17 16:02 Dose: 1,000 mg Oxycodone/Acetaminophen (Percocet 5/325 Mg Tab) 1 tab PO Q4 PRN PRN Reason: Pain, severe (8-10) Stop: 05/21/17 20:13 Last Admin: 05/18/17 20:29 Dose: 1 tab Risperidone (Risperdal Tab) 4 mg PO BID [facility] Last Admin: 05/20/17 08:52 Dose: 4 mg - Labs Labs: 05/20/17 06:00 05/20/17 06:00 PT 11.4 Seconds (9.8-13.1) 05/20/17 06:00 INR 1.0 (0.9-1.2) 05/20/17 06:00 APTT 39.3 Seconds (25.6-37.1) H 05/20/17 06:00 - Constitutional Appears: Non-toxic, Chronically Ill - Head Exam Head Exam: NORMOCEPHALIC - Eye Exam Eye Exam: absent: Scleral icterus - ENT Exam ENT Exam: Mucous Membranes Dry - Neck Exam Neck Exam: absent: Lymphadenopathy - Respiratory Exam Respiratory Exam: Decreased Breath Sounds - Cardiovascular Exam Cardiovascular Exam: REGULAR RHYTHM - GI/Abdominal Exam GI & Abdominal Exam: Distended Assessment and Plan (1) Class 1 obesity with serious comorbidity and body mass index (BMI) of 34.0 to 34.9 in adult Status: Acute (2) DVT prophylaxis Status: Acute (3) Diabetes type 2, uncontrolled Status: Acute (4) Diabetic foot infection Status: Acute
[2017-05-20] MEDS ORDERED: Insulin Detemir 100 Units/ml Inj SC SCH (22:00)
--- NOTE | 2017-05-21 20:41 | CARD ---
APPROVED REPORT EKG Measurement Heart [id number] <Conclusion> Normal sinus rhythm Normal ECG
== END 2017-05-20 18:41 | DRG 566 ==
LOC: H.ER 21:02 → H.ERHOLD 05-18 00:16 → H.MEDSURG1 05-18 04:00
PROVIDERS: ADMIT Family Medicine; ATTEND Family Medicine
PROC: 02HV33Z Insertion of Infusion Device into Superior Vena Cava, Percutaneous Approach (ICD-10-PCS; principal; 2017-05-19)
PROC: B548ZZA Ultrasonography of Superior Vena Cava, Guidance (ICD-10-PCS; 2017-05-19)
PROC: 3E04329 Introduction of Other Anti-infective into Central Vein, Percutaneous Approach (ICD-10-PCS; 2017-05-19)
DX: E11.69 Type 2 diabetes mellitus with other specified complication (principal); M86.171 Other acute osteomyelitis, right ankle and foot; F20.0 Paranoid schizophrenia; E11.65 Type 2 diabetes mellitus with hyperglycemia; L08.89 Other specified local infections of the skin and subcutaneous tissue; I10 Essential (primary) hypertension; E66.8 Other obesity; Z68.34 Body mass index [BMI] 34.0-34.9, adult; F17.210 Nicotine dependence, cigarettes, uncomplicated

== ENCOUNTER 2017-05-20 18:49 | Inpatient (IN) | payer MEDICAID ==
[2017-05-20] MEDS ORDERED: Oxycodone/Acetaminophen 5/325 mg Tab PO PRN (19:03)
[2017-05-20] MEDS ORDERED: Glucagon Recombinant 1 mg Inj IM PRN (19:03)
[2017-05-20 19:06] VITALS: BMI 33.2
[2017-05-20] MEDS: Insulin Detemir 100 Units/ml Inj SC SCH (21:54)
[2017-05-20] MEDS: Insulin Regular 100 units/ml SC SCH (21:55)
[2017-05-20] MEDS: Piperacillin/Tazobact 3.375 GM in Sodium Chloride 0.9% 100 ML IVPB SCH (21:57)
[2017-05-21] MEDS: Piperacillin/Tazobact 3.375 GM in Sodium Chloride 0.9% 100 ML IVPB SCH ×4 (04:49→21:34)
[2017-05-21 06:11] LABS: BASO # 0.1 K/uL (0.0-0.2); EOS # 0.7 K/uL (0.0-0.7); EOS % 5.4 % (0.0-4.0); HEMOGLOBIN 10.4 g/dL (12.0-18.0); LYMPH # 3.9 K/uL (1.0-4.3); LYMPH % 32.1 % (20.0-40.0); MEAN CELL VOLUME 84.6 fl (80.0-94.0); MEAN CORPUSCULAR HEMOGLOBIN 27.3 pg (27.0-31.0); MEAN CORPUSCULAR HGB CONC 32.2 g/dL (33.0-37.0); MEAN PLATELET VOLUME 7.6 fl (7.2-11.7); MONO # 0.8 K/uL (0.0-0.8); MONO % 6.6 % (0.0-10.0); NEUT # 6.7 K/uL (1.8-7.0); NEUT % 54.9 % (50.0-75.0); RBC 3.83 Mil/uL (4.40-5.90); RED CELL DISTRIBUTION WIDTH 11.7 % (11.5-14.5); WHITE BLOOD COUNT 12.2 K/uL (4.8-10.8)
[2017-05-21 06:20] VITALS: RESP 20
[2017-05-21 06:32] LABS: ALBUMIN 3.4 g/dL (3.5-5.0); ALT/SGPT 21 U/L (21-72); AST/SGOT 16 U/L (17-59); BLOOD UREA NITROGEN 13 mg/dl (9-20); CALCIUM 9.1 mg/dL (8.4-10.2); GFR AFRICAN-AMERICAN > 60; GFR NON-AFRICAN AMERICAN > 60
--- NOTE | 2017-05-21 07:44 | CP.PCM.HP ---
History of Present Illness - History of Present Illness History of Present Illness: pt admitted to [facility] for iv anbx. pending r foot 2nd digit amputation wednesday. no f/c, n/v/d. no complaints. dsg c/d/i Present on Admission - Present on Admission Any Indicators Present on Admission: Yes History of Uncontrolled Diabetes: Yes Review of Systems - Integumentary Additional comments: ulceration to r foot 2nd digit Past Patient History - Past Medical History & Family History Past Medical History?: Yes - Past Social History Smoking Status: Light Smoker < 10 Cigarettes Daily - CARDIAC Hx Hypertension: Yes (in the past pt states) - ENDOCRINE/METABOLIC Hx Diabetes Mellitus Type 2: Yes - MUSCULOSKELETAL/RHEUMATOLOGICAL Hx Falls: No - PSYCHIATRIC Hx Paranoia: Yes Hx Schizophrenia: Yes Hx Substance Use: No - SURGICAL HISTORY Hx Surgeries: No - ANESTHESIA Hx Anesthesia: No Meds Allergies/Adverse Reactions: Allergies Allergy/AdvReac Type Severity Reaction Status Date / Time No Known Allergies Allergy Verified 05/17/17 22:27 Physical Exam - Constitutional Appears: Well, Non-toxic, No Acute Distress - Head Exam Head Exam: ATRAUMATIC, NORMAL INSPECTION, NORMOCEPHALIC - Eye Exam Eye Exam: EOMI, Normal appearance, PERRL Pupil Exam: NORMAL ACCOMODATION, PERRL - ENT Exam ENT Exam: Mucous Membranes Moist, Normal Exam - Neck Exam Neck exam: Positive for: Normal Inspection - Respiratory Exam Respiratory Exam: Clear to Auscultation Bilateral, NORMAL BREATHING PATTERN - Cardiovascular Exam Cardiovascular Exam: REGULAR RHYTHM, RRR, +S1, +S2 - GI/Abdominal Exam GI & Abdominal Exam: Normal Bowel Sounds, Soft. absent: Tenderness - Extremities Exam Extremities exam: Positive for: full ROM, normal capillary refill, normal inspection, pedal pulses present - Back Exam Back exam: NORMAL INSPECTION - Neurological Exam Neurological exam: Alert, CN II-XII Intact, Normal Gait, Oriented x3, Reflexes Normal - Psychiatric Exam Psychiatric exam: Normal Affect, Normal Mood - Skin Skin Exam: Dry, Intact, Normal Color, Warm - Additional Findings Additional findings: dsg to r foot c/d/i Results - Vital Signs Recent Vital Signs: Last Vital Signs Temp Pulse Resp 20 05/20/17 20:04 BP Pulse Ox - Labs Result Diagrams: 05/21/17 06:06 05/21/17 06:06 Labs: Laboratory Results - last 24 hr 05/20/17 05/21/17 05/21/17 21:16 06:06 06:06 WBC 12.2 H RBC 3.83 L Hgb 10.4 L Hct 32.4 L MCV 84.6 MCH 27.3 MCHC 32.2 L RDW 11.7 Plt Count 412 H MPV 7.6 Neut % (Auto) 54.9 Lymph % (Auto) 32.1 [place] % (Auto) 6.6 Eos % (Auto) 5.4 H Baso % (Auto) 1.0 Neut # (Auto) 6.7 Lymph # (Auto) 3.9 [place] # (Auto) 0.8 Eos # (Auto) 0.7 Baso # (Auto) 0.1 Sodium 140 Potassium 3.6 Chloride 103 Carbon Dioxide 24 Anion Gap 17 BUN 13 Creatinine 0.8 Est GFR ( Amer) > 60 Est GFR (Non-Af Amer) > 60 POC Glucose (mg/dL) 141 H Random Glucose 154 H Calcium 9.1 Total Bilirubin 0.2 AST 16 L ALT 21 D Alkaline Phosphatase 55 Total Protein 6.9 Albumin 3.4 L Globulin 3.5 Albumin/Globulin Ratio 1.0 05/21/17 06:48 WBC RBC Hgb Hct MCV MCH MCHC RDW Plt Count MPV Neut % (Auto) Lymph % (Auto) [place] % (Auto) Eos % (Auto) Baso % (Auto) Neut # (Auto) Lymph # (Auto) [place] # (Auto) Eos # (Auto) Baso # (Auto) Sodium Potassium Chloride Carbon Dioxide Anion Gap BUN Creatinine Est GFR ( Amer) Est GFR (Non-Af Amer) POC Glucose (mg/dL) 178 H Random Glucose Calcium Total Bilirubin AST ALT Alkaline Phosphatase Total Protein Albumin Globulin Albumin/Globulin Ratio Assessment & Plan (1) Class 1 obesity with serious comorbidity and body mass index (BMI) of 34.0 to 34.9 in adult Assessment and Plan: diet contorl will follow as outpt Status: Acute (2) DVT prophylaxis Assessment and Plan: scd nad ae hose hold anticoag r/t or wednesday ambulation/oob Status: Acute (3) Diabetes type 2, uncontrolled Assessment and Plan: riss, home meds, levemir Status: Acute (4) Diabetic foot infection Assessment and Plan: iv vanco/zosyn x 10-14 days id and podiatry amputation wednesday Status: Acute Decision To Admit - Pt Status Changed To: Hospital Disposition Of: Inpatient - Admit Certification Admit to Inpatient:: After my assessment, the patient will require hospitalization for at least two midnights. This is because of the severity of symptoms shown, intensity of services needed, and/or the medical risk in this patient being treated as an outpatient. - . Bed Request Type: Transitional Care Unit Admitting Physician: Alcides Roberts
--- NOTE | 2017-05-21 08:55 | CP.PCM.PN ---
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 Patient is seen resting comfortably in bed, in NAD, and AA0x3. Patient reports the same pain to the right foot. Patient denies n/v/sob/chills/calf pain or d. Discussed plan in detail with patient. Patient is agreeable to amputation of the right 2nd digit on Wednesday. All questions/concerns addressed. No new pedal complaints Objective - Vital Signs/Intake and Output Vital Signs (last 24 hours): Temp Pulse Resp BP Pulse Ox 98.2 F 84 20 130/52 L 05/20/17 21:00 05/20/17 21:00 05/20/17 21:00 05/20/17 21:00 - Medications Medications: Current Medications Benztropine Mesylate (Cogentin) 1 mg PO DAILY [facility] Dextrose (Glutose 15) 15 gm PO ONCE PRN PRN Reason: Hypoglycemia Protocol Divalproex Sodium (Depakote Dr(*Bid*)) 500 mg PO DAILY [facility] Glucagon (Glucagen Diagnostic Kit) 1 mg IM STAT PRN PRN Reason: Hypoglycemia Protocol Vancomycin HCl 1 gm/ Sodium (Chloride) 250 mls @ 166.667 mls/hr IVPB Q12 [place] PRN Reason: Protocol Last Admin: 05/20/17 21:58 Dose: 166.667 mls/hr Piperacillin Sod/Tazobactam (Sod 3.375 gm/ Sodium [place]) 100 mls @ 100 mls/ hr IVPB Q6 [place] PRN Reason: Protocol Last Admin: 05/21/17 04:49 Dose: 100 mls/hr Insulin Detemir (Levemir) 10 units SC HS [facility] Last Admin: 05/20/17 21:54 Dose: 10 units Insulin Human Regular (Humulin R) 0 units SC ACHS [facility] PRN Reason: Protocol Last Admin: 05/20/17 21:55 Dose: Not Given Ketorolac Tromethamine (Toradol) 30 mg IVP Q6 PRN PRN Reason: Pain, moderate (4-7) Metformin HCl (Glucophage) 1,000 mg PO BID [facility] Oxycodone/Acetaminophen (Percocet 5/325 Mg Tab) 1 tab PO Q4 PRN PRN Reason: Pain, severe (8-10) Stop: 05/23/17 19:04 Risperidone (Risperdal Tab) 4 mg PO BID [facility] Last Admin: 05/20/17 21:54 Dose: 4 mg - Labs Labs: 05/21/17 06:06 05/21/17 06:06 - Constitutional Appears: Well, Non-toxic, No Acute Distress - Extremities Exam Extremities Exam: absent: Calf Tenderness Additional comments: Vasc: palpable DP pulses 1/4 bilaterally, PT pulses 1/4 b/l, temperature gradient WNL, CFT < 3 sec to all digits, digital hair present, nonpitting edema noted to the 2nd digit Neuro: gross sensation intact, protective sensation diminished Derm: open lesion noted to 2nd digit right foot measuring 1cm x 1.5cm with strong malodor, probe to tendon, negative probe to bone, 100% fibrous base with hypertrophic edges, active purulence about .5 cc expressed from ulceration, erythema localized to 2nd digit of right foot,no ascending cellulitis, no accompanied fluctuance Ortho: pain with palpation to the right 2nd digit - Neurological Exam Neurological Exam: Alert, Awake, Oriented x3 - Psychiatric Exam Psychiatric exam: Normal Affect, Normal Mood Assessment and Plan - Assessment and Plan (Free Text) Assessment: 41 y/o male with PMH of DM and paranoid schizophrenia seen and evaluated at bedside for infected right 2nd digit ulceration with positive OM, going for amputation 2nd digit Wednesday Plan: Patient is seen and evaluated Discussed plan in detail with attending Dr. Matthews Labs, charts, vitals reviewed WBC 12.2 Cleansed ulceration with saline solution, betadine, dsd, and kerlix Ordered betadine MRI reviewed R foot- OM 2nd proximal and middle phalanx, and developing or early OM of 2nd distal phalanx Podiatry recommends amputation of 2nd digit given severely infected wound with OM Patient is opting for surgical intervention, amputation of the right 2nd digit. SKYE- no evidence of occlusion. Abnormal monophasic waveforms in the infrapopliteal calf and foot arteries. Patient will go to the OR for amputation of R 2nd digit secondary to OM on Wednesday with Dr. Matthews Please provide medical clearance, thank you WBAT to the heels in surgical shoe Surgical shoe ordered Wound culture- Corynebacterium C/W iv abx per primary Will continue to follow while in house
[2017-05-21] MEDS: Insulin Regular 100 units/ml SC SCH ×4 (09:18→21:40)
[2017-05-21] MEDS: Divalproex 500 mg DR(BID formulation) PO SCH (09:19)
[2017-05-21] MEDS ORDERED: Sodium Chloride 0.9% 1,000 ML IV SCH (12:15)
[2017-05-21] MEDS: Insulin Detemir 100 Units/ml Inj SC SCH (21:40)
[2017-05-22] MEDS ORDERED: Povidone Iodine Topical 10% Sol TOP ONE (00:46)
[2017-05-22] MEDS: Piperacillin/Tazobact 3.375 GM in Sodium Chloride 0.9% 100 ML IVPB SCH ×4 (03:59→21:03)
[2017-05-22] MEDS: Insulin Regular 100 units/ml SC SCH ×4 (07:04→21:01)
[2017-05-22 08:25] LABS: BLOOD UREA NITROGEN 13 mg/dl (9-20); CALCIUM 9.1 mg/dL (8.4-10.2); GFR AFRICAN-AMERICAN > 60; GFR NON-AFRICAN AMERICAN > 60
[2017-05-22] MEDS: Divalproex 500 mg DR(BID formulation) PO SCH (08:59)
--- NOTE | 2017-05-22 10:42 | CP.PCM.PN ---
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 Patient is AAO x 3 and NAD at time of visit. Denies any acute overnight events. States that pain is well controlled at this time. Denies any further pedal complaints. Denies any recent N/V/F/C/CP/SOB/D/posterior calf pain when squeezed. Pt is aware that he will be going to OR on Wednesday for amputation of second digit. Objective - Vital Signs/Intake and Output Vital Signs (last 24 hours): Temp Pulse Resp BP Pulse Ox 97.9 F 71 20 129/76 100 05/22/17 08:23 05/22/17 08:23 05/22/17 08:23 05/22/17 08:23 05/22/17 08:23 - Medications Medications: Current Medications Benztropine Mesylate (Cogentin) 1 mg PO DAILY [facility] Last Admin: 05/22/17 08:59 Dose: 1 mg Dextrose (Glutose 15) 15 gm PO ONCE PRN PRN Reason: Hypoglycemia Protocol Divalproex Sodium (Flako Whiting(*Bid*)) 500 mg PO DAILY [facility] Last Admin: 05/22/17 08:59 Dose: 500 mg Glucagon (Glucagen Diagnostic Kit) 1 mg IM STAT PRN PRN Reason: Hypoglycemia Protocol Vancomycin HCl 1 gm/ Sodium (Chloride) 250 mls @ 166.667 mls/hr IVPB Q12 [place] PRN Reason: Protocol Last Admin: 05/22/17 09:02 Dose: 166.667 mls/hr Piperacillin Sod/Tazobactam (Sod 3.375 gm/ Sodium Chloride) 100 mls @ 100 mls/ hr IVPB Q6 [place] PRN Reason: Protocol Last Admin: 05/22/17 09:03 Dose: 100 mls/hr Insulin Detemir (Levemir) 10 units SC HS [facility] Last Admin: 05/21/17 21:40 Dose: 10 units Insulin Human Regular (Humulin R) 0 units SC ACHS [facility] PRN Reason: Protocol Last Admin: 05/22/17 07:04 Dose: Not Given Ketorolac Tromethamine (Toradol) 30 mg IVP Q6 PRN PRN Reason: Pain, moderate (4-7) Metformin HCl (Glucophage) 1,000 mg PO BID [facility] Last Admin: 05/22/17 08:59 Dose: 1,000 mg Oxycodone/Acetaminophen (Percocet 5/325 Mg Tab) 1 tab PO Q4 PRN PRN Reason: Pain, severe (8-10) Stop: 05/23/17 19:04 Risperidone (Risperdal Tab) 4 mg PO BID@0900,2100 [facility] Last Admin: 05/22/17 09:01 Dose: 4 mg - Labs Labs: 05/21/17 06:06 05/22/17 05:30 - Constitutional Appears: Well, Non-toxic, No Acute Distress - Extremities Exam Additional comments: Vasc: palpable DP pulses 1/4 bilaterally, PT pulses 1/4 b/l, temperature gradient WNL, CFT < 3 sec to all digits, digital hair present, non-pitting edema noted to the 2nd digit Neuro: gross sensation intact, protective sensation diminished Derm: open lesion noted to 2nd digit right foot measuring 1cm x 1.5cm. No erythema, no malodor, no purulent drainage noted today. No other clinical signs of infection appreciated. No other open lesions, wounds, maceration, xerosis, abnormal pigmentation or abnormal growths noted to patient's foot Ortho: pain with palpation to the right 2nd digit - Neurological Exam Neurological Exam: Alert, Awake, Oriented x3 - Psychiatric Exam Psychiatric exam: Normal Affect, Normal Mood Assessment and Plan - Assessment and Plan (Free Text) Assessment: 41 y/o male with PMH of DM and paranoid schizophrenia seen and evaluated at bedside for infected right 2nd digit ulceration with positive OM. Pt for second digit amputation on Wednesday with Dr. Matthews Plan: Patient seen and evaluated at bedside Plan discussed with attending, Dr. Matthews Charts, labs and vitals reviewed Leukocytosis of 12.2 yesterday, f/u CBC, BMP in AM Vitals stable Continue IV abx and pain management per Dr. Roberts PT/OT Wound dressed with betadine, DSD Patient for OR with Dr. Matthews on Wednesday 05/24 for amputation of right second digit Medical clearance appreciated Podiatry will continue to follow while patient in house
[2017-05-22] MEDS: Insulin Detemir 100 Units/ml Inj SC SCH (21:02)
[2017-05-23] MEDS: Piperacillin/Tazobact 3.375 GM in Sodium Chloride 0.9% 100 ML IVPB SCH ×4 (04:05→21:35)
[2017-05-23 07:54] LABS: HEMOGLOBIN 10.4 g/dL (12.0-18.0); MEAN CELL VOLUME 83.6 fl (80.0-94.0); MEAN CORPUSCULAR HEMOGLOBIN 27.7 pg (27.0-31.0); MEAN CORPUSCULAR HGB CONC 33.1 g/dL (33.0-37.0); RBC 3.75 Mil/uL (4.40-5.90); RED CELL DISTRIBUTION WIDTH 11.9 % (11.5-14.5)
[2017-05-23] MEDS: Insulin Regular 100 units/ml SC SCH ×4 (07:57→21:43)
[2017-05-23 08:06] LABS: BLOOD UREA NITROGEN 11 mg/dl (9-20); CALCIUM 9.3 mg/dL (8.4-10.2); GFR AFRICAN-AMERICAN > 60; GFR NON-AFRICAN AMERICAN > 60
[2017-05-23] MEDS: Divalproex 500 mg DR(BID formulation) PO SCH (08:33)
--- NOTE | 2017-05-23 10:25 | CP.PCM.PN ---
Subjective - Date & Time of Evaluation Date of Evaluation: 05/23/17 Time of Evaluation: 10:23 - Subjective Subjective: pt doing well. no f/c, n/v/d. bw noted. pt is cleared for r foto amputuation of 2nd digit by podiatry ekg noted. no complaints offered. glucose noted. Objective - Vital Signs/Intake and Output Vital Signs (last 24 hours): Temp Pulse Resp BP Pulse Ox 97.0 F L 73 20 119/68 97 05/23/17 08:28 05/23/17 08:28 05/23/17 08:28 05/23/17 08:28 05/23/17 08:28 - Medications Medications: Current Medications Benztropine Mesylate (Cogentin) 1 mg PO DAILY [facility] Last Admin: 05/23/17 08:33 Dose: 1 mg Dextrose (Glutose 15) 15 gm PO ONCE PRN PRN Reason: Hypoglycemia Protocol Divalproex Sodium (Depakote Dr(*Bid*)) 500 mg PO DAILY [facility] Last Admin: 05/23/17 08:33 Dose: 500 mg Glucagon (Glucagen Diagnostic Kit) 1 mg IM STAT PRN PRN Reason: Hypoglycemia Protocol Vancomycin HCl 1 gm/ Sodium (Chloride) 250 mls @ 166.667 mls/hr IVPB Q12 [place] PRN Reason: Protocol Last Admin: 05/23/17 08:32 Dose: 166.667 mls/hr Piperacillin Sod/Tazobactam (Sod 3.375 gm/ Sodium Chloride) 100 mls @ 100 mls/ hr IVPB Q6 [facility] PRN Reason: Protocol Last Admin: 05/23/17 04:05 Dose: 100 mls/hr Insulin Detemir (Levemir) 10 units SC HS [facility] Last Admin: 05/22/17 21:02 Dose: 10 units Insulin Human Regular (Humulin R) 0 units SC ACHS [facility] PRN Reason: Protocol Last Admin: 05/23/17 07:57 Dose: Not Given Ketorolac Tromethamine (Toradol) 30 mg IVP Q6 PRN PRN Reason: Pain, moderate (4-7) Metformin HCl (Glucophage) 1,000 mg PO BID [facility] Last Admin: 05/23/17 08:33 Dose: 1,000 mg Oxycodone/Acetaminophen (Percocet 5/325 Mg Tab) 1 tab PO Q4 PRN PRN Reason: Pain, severe (8-10) Stop: 05/23/17 19:04 Risperidone (Risperdal Tab) 4 mg PO BID@0900,2100 [facility] Last Admin: 05/23/17 08:32 Dose: 4 mg - Labs Labs: 05/23/17 06:00 05/23/17 06:00 - Constitutional Appears: Well, Non-toxic, No Acute Distress - Head Exam Head Exam: ATRAUMATIC, NORMAL INSPECTION, NORMOCEPHALIC - Eye Exam Eye Exam: EOMI, Normal appearance, PERRL Pupil Exam: NORMAL ACCOMODATION, PERRL - ENT Exam ENT Exam: Mucous Membranes Moist, Normal Exam - Neck Exam Neck Exam: Full ROM, Normal Inspection. absent: Lymphadenopathy - Respiratory Exam Respiratory Exam: Clear to Ausculation Bilateral, NORMAL BREATHING PATTERN - Cardiovascular Exam Cardiovascular Exam: REGULAR RHYTHM, RRR, +S1, +S2. absent: Murmur - GI/Abdominal Exam GI & Abdominal Exam: Soft, Normal Bowel Sounds. absent: Tenderness - Extremities Exam Extremities Exam: Full ROM, Normal Capillary Refill, Normal Inspection. absent : Joint Swelling, Pedal Edema Additional comments: dsg to r foot c/d/i - Back Exam Back Exam: NORMAL INSPECTION - Neurological Exam Neurological Exam: Alert, Awake, CN II-XII Intact, Normal Gait, Oriented x3 - Psychiatric Exam Psychiatric exam: Normal Affect, Normal Mood - Skin Skin Exam: Dry, Intact, Normal Color, Warm Assessment and Plan (1) Class 1 obesity with serious comorbidity and body mass index (BMI) of 34.0 to 34.9 in adult Status: Acute (2) DVT prophylaxis Status: Acute (3) Diabetes type 2, uncontrolled Status: Acute (4) Diabetic foot infection Status: Acute - Assessment and Plan (Free Text) Assessment: (1) Class 1 obesity with serious comorbidity and body mass index (BMI) of 34.0 to 34.9 in adult Assessment and Plan: diet contorl will follow as outpt Status: Acute (2) DVT prophylaxis Assessment and Plan: scd nad ae hose hold anticoag r/t or wednesday ambulation/oob Status: Acute (3) Diabetes type 2, uncontrolled Assessment and Plan: riss, home meds, levemir Status: Acute (4) Diabetic foot infection Assessment and Plan: iv vanco/zosyn x 10-14 days id and podiatry amputation wednesday medically cleared for surgery Status: Acute
[2017-05-23] MEDS ORDERED: Povidone Iodine Topical 10% Sol ONE (12:42)
--- NOTE | 2017-05-23 13:19 | CP.PCM.PN ---
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 Patient is AAO x 3 and NAD at time of visit. Denies any acute overnight events. States that pain is well controlled at this time. Denies any further pedal complaints. Denies any recent N/V/F/C/CP/SOB/D/posterior calf pain when squeezed. Pt is aware that he will be going to OR tomorrow for amputation of second digit. Objective - Vital Signs/Intake and Output Vital Signs (last 24 hours): Temp Pulse Resp BP Pulse Ox 97.0 F L 73 20 119/68 97 05/23/17 08:28 05/23/17 08:28 05/23/17 08:28 05/23/17 08:28 05/23/17 08:28 - Medications Medications: Current Medications Benztropine Mesylate (Cogentin) 1 mg PO DAILY [facility] Last Admin: 05/23/17 08:33 Dose: 1 mg Dextrose (Glutose 15) 15 gm PO ONCE PRN PRN Reason: Hypoglycemia Protocol Divalproex Sodium (Flako Whiting(*Bid*)) 500 mg PO DAILY [facility] Last Admin: 05/23/17 08:33 Dose: 500 mg Glucagon (Glucagen Diagnostic Kit) 1 mg IM STAT PRN PRN Reason: Hypoglycemia Protocol Vancomycin HCl 1 gm/ Sodium ([facility]) 250 mls @ 166.667 mls/hr IVPB Q12 [place] PRN Reason: Protocol Last Admin: 05/23/17 08:32 Dose: 166.667 mls/hr Piperacillin Sod/Tazobactam (Sod 3.375 gm/ Sodium Chloride) 100 mls @ 100 mls/ hr IVPB Q6 [place] PRN Reason: Protocol Last Admin: 05/23/17 10:22 Dose: 100 mls/hr Insulin Detemir (Levemir) 10 units SC HS [facility] Last Admin: 05/22/17 21:02 Dose: 10 units Insulin Human Regular (Humulin R) 0 units SC ACHS [facility] PRN Reason: Protocol Last Admin: 05/23/17 12:32 Dose: 2 unit Ketorolac Tromethamine (Toradol) 30 mg IVP Q6 PRN PRN Reason: Pain, moderate (4-7) Metformin HCl (Glucophage) 1,000 mg PO BID [facility] Last Admin: 05/23/17 08:33 Dose: 1,000 mg Oxycodone/Acetaminophen (Percocet 5/325 Mg Tab) 1 tab PO Q4 PRN PRN Reason: Pain, severe (8-10) Stop: 05/23/17 19:04 Risperidone (Risperdal Tab) 4 mg PO BID@0900,2100 [facility] Last Admin: 05/23/17 08:32 Dose: 4 mg - Labs Labs: 05/23/17 06:00 05/23/17 06:00 - Constitutional Appears: Well, Non-toxic, No Acute Distress - Extremities Exam Additional comments: Vasc: palpable DP pulses 1/4 bilaterally, PT pulses 1/4 b/l, temperature gradient WNL, CFT < 3 sec to all digits, digital hair present, non-pitting edema noted to the 2nd digit Neuro: gross sensation intact, protective sensation diminished Derm: open lesion noted to 2nd digit right foot measuring 1cm x 1.5cm. No erythema, no malodor, no purulent drainage noted today. No other clinical signs of infection appreciated. No other open lesions, wounds, maceration, xerosis, abnormal pigmentation or abnormal growths noted to patient's foot Ortho: pain with palpation to the right 2nd digit - Neurological Exam Neurological Exam: Alert, Awake, Oriented x3 - Psychiatric Exam Psychiatric exam: Normal Affect, Normal Mood Assessment and Plan - Assessment and Plan (Free Text) Assessment: 41 y/o male with PMH of DM and paranoid schizophrenia seen and evaluated at bedside for infected right 2nd digit ulcer with underlying OM. Plan: Patient seen and evaluated at bedside Plan discussed with attending, Dr. Matthews Charts, labs and vitals reviewed Leukocytosis of 12.0 Vitals stable Continue IV abx and pain management per Dr. Roberts PT/OT Wound dressed with betadine, DSD Patient for OR with Dr. Matthews on 05/24 for amputation of right second digit Medical clearance appreciated Podiatry will continue to follow while patient in house
[2017-05-23 22:13] VITALS: TEMP 98.2; O2SAT 96
[2017-05-24] MEDS: Insulin Detemir 100 Units/ml Inj SC SCH (01:00)
[2017-05-24] MEDS: Piperacillin/Tazobact 3.375 GM in Sodium Chloride 0.9% 100 ML IVPB SCH ×2 (05:02→09:46)
[2017-05-24] MEDS: Insulin Regular 100 units/ml SC SCH ×2 (07:19→13:05)
--- NOTE | 2017-05-24 08:21 | CP.PCM.PN ---
Subjective - Date & Time of Evaluation Date of Evaluation: 05/24/17 Time of Evaluation: 08:21 - Subjective Subjective: Podiatry Progress Note- Dr. Matthews 41 y/o male seen and evaluated at bedside for infected right 2nd digit ulcer with underlying OM. Patient is AAO x 3 and NAD at time of visit. Denies any acute overnight events. States that he is having a small amount of pain but feels fine. Says he gets relief from pain meds. Denies any further pedal complaints. Denies any recent N/V/F/C/CP/SOB/D/posterior calf pain when squeezed. Confirms NPO status after midnight last night. Objective - Vital Signs/Intake and Output Vital Signs (last 24 hours): Temp Pulse Resp BP Pulse Ox 98.2 F 106 H 20 117/74 96 05/23/17 22:12 05/23/17 22:12 05/23/17 22:12 05/23/17 22:12 05/23/17 22:12 - Medications Medications: Current Medications Benztropine Mesylate (Cogentin) 1 mg PO DAILY [facility] Last Admin: 05/23/17 08:33 Dose: 1 mg Dextrose (Glutose 15) 15 gm PO ONCE PRN PRN Reason: Hypoglycemia Protocol Divalproex Sodium (Flako Whiting(*Bid*)) 500 mg PO DAILY [facility] Last Admin: 05/23/17 08:33 Dose: 500 mg Glucagon (Glucagen Diagnostic Kit) 1 mg IM STAT PRN PRN Reason: Hypoglycemia Protocol Vancomycin HCl 1 gm/ Sodium (Chloride) 250 mls @ 166.667 mls/hr IVPB Q12 [place] PRN Reason: Protocol Last Admin: 05/23/17 21:34 Dose: 166.667 mls/hr Piperacillin Sod/Tazobactam (Sod 3.375 gm/ Sodium Chloride) 100 mls @ 100 mls/ hr IVPB Q6 [place] PRN Reason: Protocol Last Admin: 05/24/17 05:02 Dose: 100 mls/hr Insulin Detemir (Levemir) 10 units SC HS [facility] Last Admin: 05/24/17 01:00 Dose: Not Given Insulin Human Regular (Humulin R) 0 units SC ACHS [place] PRN Reason: Protocol Last Admin: 05/24/17 07:19 Dose: Not Given Ketorolac Tromethamine (Toradol) 30 mg IVP Q6 PRN PRN Reason: Pain, moderate (4-7) Metformin HCl (Glucophage) 1,000 mg PO BID [facility] Last Admin: 05/23/17 17:53 Dose: 1,000 mg Risperidone (Risperdal Tab) 4 mg PO BID@0900,2100 [facility] Last Admin: 05/23/17 21:32 Dose: 4 mg - Labs Labs: 05/23/17 06:00 05/23/17 06:00 - Constitutional Appears: Well, Non-toxic, No Acute Distress - Extremities Exam Additional comments: Lower extremity focused exam: Vasc: palpable DP pulses 1/4 B/L, PT pulses 1/4 b/l, temperature gradient WNL, CFT < 3 sec to all digits, digital hair present, non-pitting edema noted, localized to the right foot 2nd digit Neuro: gross sensation intact, protective sensation diminished Derm: open lesion noted to the medial aspect of the 2nd digit of right foot measuring approx 1cm x 1.5cm with mixed fibronecrotic wound base. Марина wound exhibits maceration. No erythema, no malodor, no purulent drainage noted today. No other clinical signs of infection appreciated. No other open lesions, wounds , xerosis, abnormal pigmentation or abnormal growths noted to patient's foot Ortho: pain with palpation to the right 2nd digit - Neurological Exam Neurological Exam: Alert, Awake, Oriented x3 - Psychiatric Exam Psychiatric exam: Normal Affect, Normal Mood Assessment and Plan - Assessment and Plan (Free Text) Assessment: 41 y/o male with PMHx of DM and paranoid schizophrenia with infected right 2nd digit ulcer with underlying osteomyelitis Plan: Patient seen and evaluated at bedside Plan discussed with attending, Dr. Matthews Charts, labs and vitals reviewed - afebrile, WBC 12.0 yesterday Continue IV abx and pain management per Dr. Roberts NPO status confirmed after midnight Medical clearance in chart Wound cleansed with saline and dressed with betadine, DSD Pt to go to OR this afternoon for right foot 2nd digit amputation Podiatry will continue to follow postoperatively
[2017-05-24 08:41] VITALS: BP 129/70; PULSE 86
[2017-05-24] MEDS: Divalproex 500 mg DR(BID formulation) PO SCH (10:31)
== END 2017-05-24 14:00 | disposition short-term general hospital (02) | DRG 294 ==
LOC: H.TCU 19:06
PROVIDERS: ADMIT Family Medicine; ATTEND Family Medicine
DX: E11.621 Type 2 diabetes mellitus with foot ulcer (principal); L97.519 Non-pressure chronic ulcer of other part of right foot with unspecified severity; F20.0 Paranoid schizophrenia; E11.65 Type 2 diabetes mellitus with hyperglycemia; E66.9 Obesity, unspecified; I10 Essential (primary) hypertension; Z68.34 Body mass index [BMI] 34.0-34.9, adult; Z87.891 Personal history of nicotine dependence; E11.69 Type 2 diabetes mellitus with other specified complication; M86.9 Osteomyelitis, unspecified; Z79.84 Long term (current) use of oral hypoglycemic drugs; Z79.4 Long term (current) use of insulin

== ENCOUNTER 2017-05-24 13:00 | Inpatient (IN) | payer MEDICAID ==
--- NOTE | 2017-05-24 15:34 | CP.PCM.PN ---
Subjective - Date & Time of Evaluation Date of Evaluation: 05/24/17 Time of Evaluation: 15:32 - Subjective Subjective: 41 y/o male with PMHx of DM and paranoid schizophrenia seen in [facility] prior to right foot 2nd digit amputation today with Dr. Matthews. Pt confirms NPO status after midnight last night. States he is understanding and agreeable to proceed. Denies any events overnight. Denies any pain to the right foot. Denies F/C/N/V/ CP/SOB PSHx: denies All: NKDA Social: denies EtOH, cigarette or illicit drug use Objective - Vital Signs/Intake and Output Vital Signs (last 24 hours): Temp Pulse Resp BP Pulse Ox 98.4 F 68 18 138/82 100 05/24/17 14:08 05/24/17 14:08 05/24/17 14:08 05/24/17 14:08 05/24/17 14:08 - Constitutional Appears: Well, Non-toxic, No Acute Distress - Extremities Exam Additional comments: Dressing clean/dry/intact to R foot No strikethrough noted - Neurological Exam Neurological Exam: Alert, Awake, Oriented x3 - Psychiatric Exam Psychiatric exam: Normal Affect, Normal Mood Assessment and Plan - Assessment and Plan (Free Text) Assessment: 41 y/o male with right foot 2nd digit ulcer with osteomyelitis, to go to OR today in [facility] for right foot 2nd digit amputation Plan: Pt was seen and examined in [facility] Pt NPO status was confirmed All pre-op testing and clearance in chart Pt has exhausted all conservative treatment at this time and is opting for surgical intervention Pt was explained procedure and post-operative course All pt's questions were answered to satisfaction No guarantees were made Pt understands all risks, benefits and complications of procedure Pt will follow-up with Dr. Matthews in [facility] podiatry clinic within 1 week of surgery
[2017-05-24] MEDS ORDERED: Bupivacaine 0.5% Inj(30mL) ONE (16:14)
[2017-05-24] MEDS ORDERED: Lidocaine 2% Inj (20ml) ONE (16:14)
[2017-05-24] MEDS ORDERED: Propofol 10 mg/ml Inj (20 ML) ONE ×2 (16:15→16:45)
[2017-05-24] MEDS ORDERED: Midazolam 2 MG/2 ML VIAL ONE (16:16)
[2017-05-24] MEDS ORDERED: Lactated Ringer's 1,000 ML IV ONE (16:35)
[2017-05-24] MEDS ORDERED: Piperacillin/Tazobact 3.375 gm Inj IVPB ONE (16:40)
--- NOTE | 2017-05-24 17:46 | PCM.SURG1 ---
Surgeon's Initial Post Op Note - Surgeon's Notes Surgeon: Dr. Matthews Package Lift Operator: Tom Piña PGY-1, Sabas Calabrese PGY-1 Type of Anesthesia: General LMA, Local Anesthesia Administered By: Dr. Milligan Pre-Operative Diagnosis: right foot 2nd digit osteomyelitis Operative Findings: I: 16cc 0.5% Marcaine plain. M: 3-0 Vicryl, 4-0 Vicryl, 4- 0 Nylon. 42 min tourniquet time Post-Operative Diagnosis: same Operation Performed: right foot 2nd digit amputation Specimen/Specimens Removed: right foot 2nd digit bone and neighboring soft tissue Estimated Blood Loss: EBL {In ML}: 5 Blood Products Given: N/A Drains Used: No Drains Post-Op Condition: Good Date of Surgery/Procedure: 05/24/17 Time of Surgery/Procedure: 15:20
[2017-05-24] MEDS ORDERED: Oxycodone/Acetaminophen 5/325 mg Tab PO PRN (17:49)
[2017-05-24] MEDS ORDERED: Morphine 4 MG/ML VIAL IVP PRN (17:51)
[2017-05-24] MEDS ORDERED: Dextrose 50% SYRINGE Inj (50 ml) IV PRN (18:02)
[2017-05-24] MEDS ORDERED: Glucagon Recombinant 1 mg Inj IM PRN (18:02)
[2017-05-24] MEDS: Oxycodone/Acetaminophen 5/325 mg Tab PO PRN (21:28)
[2017-05-24 21:50] VITALS: RESP 20
[2017-05-24] MEDS: Insulin Regular 100 units/ml SC SCH (21:55)
[2017-05-24] MEDS ORDERED: DEX IVPB SCH (22:00)
[2017-05-24] MEDS ORDERED: TAZO IVPB SCH (22:00)
[2017-05-24] MEDS ORDERED: PIPERACILL IVPB SCH (22:00)
[2017-05-24] MEDS ORDERED: Insulin Detemir 100 Units/ml Inj SC SCH (22:00)
[2017-05-24] MEDS: Piperacillin/Tazobact 3.375 GM in Sodium Chloride 0.9% 100 ML IVPB SCH (22:02)
[2017-05-25] MEDS: Piperacillin/Tazobact 3.375 GM in Sodium Chloride 0.9% 100 ML IVPB SCH ×2 (03:48→08:59)
[2017-05-25] MEDS: Oxycodone/Acetaminophen 5/325 mg Tab PO PRN (05:05)
[2017-05-25 06:48] LABS: BASO # 0.2 K/uL (0.0-0.2); BASO % 1.1 % (0.0-2.0); EOS # 0.5 K/uL (0.0-0.7); EOS % 3.1 % (0.0-4.0); HEMOGLOBIN 9.2 g/dL (12.0-18.0); LYMPH % 20.3 % (20.0-40.0); MEAN CELL VOLUME 83.6 fl (80.0-94.0); MEAN CORPUSCULAR HEMOGLOBIN 27.7 pg (27.0-31.0); MEAN CORPUSCULAR HGB CONC 33.1 g/dL (33.0-37.0); MEAN PLATELET VOLUME 7.9 fl (7.2-11.7); MONO # 1.1 K/uL (0.0-0.8); MONO % 7.2 % (0.0-10.0); NEUT # 10.1 K/uL (1.8-7.0); NEUT % 68.3 % (50.0-75.0); NRBC % 0.1 % (0.0-0.0); RBC 3.31 Mil/uL (4.40-5.90); WHITE BLOOD COUNT 14.7 K/uL (4.8-10.8)
[2017-05-25 07:30] LABS: ALBUMIN 3.3 g/dL (3.5-5.0); ALT/SGPT 24 U/L (21-72); AST/SGOT 18 U/L (17-59); BLOOD UREA NITROGEN 16 mg/dl (9-20); CALCIUM 8.7 mg/dL (8.4-10.2); GFR AFRICAN-AMERICAN > 60; GFR NON-AFRICAN AMERICAN > 60
--- NOTE | 2017-05-25 07:53 | CP.PCM.HP ---
History of Present Illness - History of Present Illness History of Present Illness: pt admitted to [facility] s/p r foot 2nd digit amputation yesterday. pt is for 7-10 days iv anbx. dsg c/d/i, distal pms intact. no other complaints except mild pain at site. controlled w/ percocet. Present on Admission - Present on Admission Any Indicators Present on Admission: Yes History of Uncontrolled Diabetes: Yes Review of Systems - Integumentary Integumentary: As Per HPI Past Patient History - Past Medical History & Family History Past Medical History?: Yes - Past Social History Smoking Status: Current Some Days Smoker - CARDIAC Hx Hypertension: Yes (in the past pt states) - ENDOCRINE/METABOLIC Hx Diabetes Mellitus Type 2: Yes - MUSCULOSKELETAL/RHEUMATOLOGICAL Hx Musculoskeletal Disorders: Yes Hx Falls: No Hx Osteomyelitis: Yes - GASTROINTESTINAL Hx Gastrointestinal Disorders: No - GENITOURINARY/GYNECOLOGICAL Hx Genitourinary Disorders: No - PSYCHIATRIC Hx Emotional Abuse: No Hx Physical Abuse: No - SURGICAL HISTORY Hx Surgeries: Yes Other/Comment: INSERTION OF PICCLINE-RIGHT ARM - ANESTHESIA Hx Anesthesia: No Meds Allergies/Adverse Reactions: Allergies Allergy/AdvReac Type Severity Reaction Status Date / Time No Known Allergies Allergy Verified 05/17/17 22:27 Physical Exam - Constitutional Appears: Well, Non-toxic, No Acute Distress - Head Exam Head Exam: ATRAUMATIC, NORMAL INSPECTION, NORMOCEPHALIC - Eye Exam Eye Exam: EOMI, Normal appearance, PERRL Pupil Exam: NORMAL ACCOMODATION, PERRL - ENT Exam ENT Exam: Mucous Membranes Moist, Normal Exam - Neck Exam Neck exam: Positive for: Normal Inspection - Respiratory Exam Respiratory Exam: Clear to Auscultation Bilateral, NORMAL BREATHING PATTERN - Cardiovascular Exam Cardiovascular Exam: REGULAR RHYTHM, RRR, +S1, +S2 - GI/Abdominal Exam GI & Abdominal Exam: Normal Bowel Sounds, Soft. absent: Tenderness - Extremities Exam Extremities exam: Positive for: full ROM, normal capillary refill, normal inspection, pedal pulses present Additional comments: dsg to r foot c/d/i - Back Exam Back exam: NORMAL INSPECTION - Neurological Exam Neurological exam: Alert, CN II-XII Intact, Normal Gait, Oriented x3, Reflexes Normal - Psychiatric Exam Psychiatric exam: Normal Affect, Normal Mood - Skin Skin Exam: Dry, Intact, Normal Color, Warm Results - Vital Signs Recent Vital Signs: Last Vital Signs Temp 98.5 F 05/25/17 03:46 Pulse 89 05/25/17 03:46 Resp 20 05/25/17 03:46 BP 126/66 05/25/17 03:46 Pulse Ox 97 05/25/17 03:46 - Labs Result Diagrams: 05/25/17 05:30 05/25/17 05:30 Labs: Laboratory Results - last 24 hr 05/24/17 05/24/17 05/25/17 18:38 21:02 05:30 WBC 14.7 H RBC 3.31 L Hgb 9.2 L Hct 27.7 L MCV 83.6 MCH 27.7 MCHC 33.1 RDW 12.0 Plt Count 430 H D MPV 7.9 Neut % (Auto) 68.3 Lymph % (Auto) 20.3 [place] % (Auto) 7.2 Eos % (Auto) 3.1 Baso % (Auto) 1.1 Neut # (Auto) 10.1 H Lymph # (Auto) 3.0 [place] # (Auto) 1.1 H Eos # (Auto) 0.5 Baso # (Auto) 0.2 Sodium Potassium Chloride Carbon Dioxide Anion Gap BUN Creatinine Est GFR ( Amer) Est GFR (Non-Af Amer) POC Glucose (mg/dL) 117 H 184 H Random Glucose Calcium Total Bilirubin AST ALT Alkaline Phosphatase Total Protein Albumin Globulin Albumin/Globulin Ratio 05/25/17 05:30 WBC RBC Hgb Hct MCV MCH MCHC RDW Plt Count MPV Neut % (Auto) Lymph % (Auto) [place] % (Auto) Eos % (Auto) Baso % (Auto) Neut # (Auto) Lymph # (Auto) [place] # (Auto) Eos # (Auto) Baso # (Auto) Sodium 140 Potassium 4.0 Chloride 102 Carbon Dioxide 25 Anion Gap 17 BUN 16 Creatinine 0.9 Est GFR ( Amer) > 60 Est GFR (Non-Af Amer) > 60 POC Glucose (mg/dL) Random Glucose 187 H Calcium 8.7 Total Bilirubin 0.3 AST 18 ALT 24 Alkaline Phosphatase 53 Total Protein 6.6 Albumin 3.3 L Globulin 3.4 Albumin/Globulin Ratio 1.0 Assessment & Plan (1) Class 1 obesity with serious comorbidity and body mass index (BMI) of 34.0 to 34.9 in adult Status: Acute (2) DVT prophylaxis Status: Acute (3) Diabetes type 2, uncontrolled Status: Acute (4) Diabetic foot infection Status: Acute - Assessment and Plan (Free Text) Assessment: (1) Class 1 obesity with serious comorbidity and body mass index (BMI) of 34.0 to 34.9 in adult Assessment and Plan: diet contorl will follow as outpt Status: Acute (2) DVT prophylaxis Assessment and Plan: scd nad ae hose hold anticoag r/t or wednesday ambulation/oob Status: Acute (3) Diabetes type 2, uncontrolled Assessment and Plan: riss, home meds, levemir Status: Acute (4) Diabetic foot infection Assessment and Plan: iv vanco/zosyn x 10-14 days id and podiatry amputation wednesday pod 1 Status: Acute dc to [facility] today Decision To Admit - Pt Status Changed To: Hospital Disposition Of: Inpatient - Admit Certification Admit to Inpatient:: After my assessment, the patient will require hospitalization for at least two midnights. This is because of the severity of symptoms shown, intensity of services needed, and/or the medical risk in this patient being treated as an outpatient. - . Bed Request Type: Med/Surg Admitting Physician: Alcides Roberts
--- NOTE | 2017-05-25 08:25 | CP.PCM.PN ---
Subjective - Date & Time of Evaluation Date of Evaluation: 05/25/17 Time of Evaluation: 08:25 - Subjective Subjective: 41 y/o male seen at bedside this morning 1 day s/p right foot 2nd digit amputation. Pt denies any events overnight and says he slept ok. Admits to mild pain in the foot, well controlled by pain meds. Says his dressing has remained clean, dry and intact since surgery. Denies F/C/N/V/CP/SOB. Objective - Vital Signs/Intake and Output Vital Signs (last 24 hours): Temp Pulse Resp BP Pulse Ox 98.5 F 89 20 126/66 97 05/25/17 03:46 05/25/17 03:46 05/25/17 03:46 05/25/17 03:46 05/25/17 03:46 - Medications Medications: Current Medications Acetaminophen (Tylenol 325mg Tab) 650 mg PO Q4 PRN PRN Reason: Pain, Mild (1-3) Benztropine Mesylate (Cogentin) 1 mg PO DAILY [facility] Dextrose (Dextrose 50% Inj) 50 ml IV STAT PRN PRN Reason: Hypoglycemia Protocol Dextrose (Glutose 15) 15 gm PO ONCE PRN PRN Reason: Hypoglycemia Protocol Divalproex Sodium (Depakote Dr(*Bid*)) 500 mg PO DAILY [facility] Glucagon (Glucagen Diagnostic Kit) 1 mg IM STAT PRN PRN Reason: Hypoglycemia Protocol Piperacillin Sod/Tazobactam (Sod 3.375 gm/ Sodium Chloride) 100 mls @ 100 mls/ hr IVPB Q6 [facility] Last Admin: 05/25/17 03:48 Dose: 100 mls/hr Vancomycin HCl 1 gm/ Sodium (Chloride) 250 mls @ 166.667 mls/hr IVPB Q12 [facility] Last Admin: 05/24/17 22:02 Dose: 166.667 mls/hr Insulin Detemir (Levemir) 10 units SC HS [facility] Last Admin: 05/24/17 22:55 Dose: 10 units Insulin Human Regular (Humulin R) 0 units SC ACHS [place] PRN Reason: Protocol Last Admin: 05/24/17 21:55 Dose: Not Given Ketorolac Tromethamine (Toradol) 30 mg IVP Q6 PRN PRN Reason: Pain, moderate (4-7) Metformin HCl (Glucophage) 1,000 mg PO BIDWM [facility] Oxycodone/Acetaminophen (Percocet 5/325 Mg Tab) 1 tab PO Q4 PRN PRN Reason: Pain, moderate (4-7) Stop: 05/27/17 17:50 Oxycodone/Acetaminophen (Percocet 5/325 Mg Tab) 2 tab PO Q4 PRN PRN Reason: Pain, severe (8-10) Stop: 05/27/17 17:50 Last Admin: 05/25/17 05:05 Dose: 2 tab Risperidone (Risperdal Tab) 4 mg PO BID@0900,2100 [facility] Last Admin: 05/24/17 22:55 Dose: 4 mg - Labs Labs: 05/25/17 05:30 05/25/17 05:30 - Constitutional Appears: Well, Non-toxic, No Acute Distress - Extremities Exam Additional comments: RLE focused exam: Vasc: DP/PT pulses palpable 2/4. Temperature gradient warm to warm. CFT < 3 sec x 4 digits. Mild localized pedal edema to dorsum of foot at surgical site Derm: Surgical incision site noted to dorsum of 2nd met head at 2nd digit amputation site. Sutures intact with no dehiscence noted. Skin edges well coapted. No malodor, no purulence or drainage expressed, no fluctuance. Neuro: Protective sensation slightly diminished Ortho: No tenderness to palpation of surgical site - Neurological Exam Neurological Exam: Alert, Awake, Oriented x3 - Psychiatric Exam Psychiatric exam: Normal Affect, Normal Mood Assessment and Plan - Assessment and Plan (Free Text) Assessment: 41 y/o male 1 day s/p right foot 2nd digit amputation secondary to diabetic foot ulcer with osteomyelitis Plan: Pt seen and evaluated at bedside Discussed with attending Dr. Matthews Afebristan, WBC 14.7 Surgical site cleansed with saline and dressed with xeroform and DSD Continue IV abx per ID Continue pain mgt per primary team Patient may be WBAT to R heel with use of surgical shoe at all times weight bearing Will continue to follow patient while in house
[2017-05-25 08:27] VITALS: BP 108/72; PULSE 84; TEMP 98.7; O2SAT 95
[2017-05-25] MEDS ORDERED: Patient's Own Med (Vancomycin/0.9 % Sod Chloride [Vanco 1 Gram/250 Ml-0.9% Nacl] 1 GM) IV SCH (09:00)
[2017-05-25] MEDS ORDERED: Divalproex 500 mg DR(BID formulation) PO SCH (09:00)
[2017-05-25] MEDS: Insulin Regular 100 units/ml SC SCH ×3 (12:17→16:43)
--- NOTE | 2017-05-27 00:13 | OP ---
PROCEDURE DATE: 05/24/2017 PREOPERATIVE DIAGNOSIS: Right second digit osteomyelitis. POSTOPERATIVE DIAGNOSIS: Right second digit osteomyelitis. NAME OF THE PROCEDURE: Right foot second digit amputation. SURGEON: Manny Matthews DPM ASSISTANTS: Tom Piña DPM, PGY1 and Sabas Calabrese DPM, PGY1 TYPE OF ANESTHESIA: IV sedation with local. ANESTHESIA ADMINISTERED BY: Semaj Milligan MD INDICATIONS: The patient is a 41-year-old male with the above diagnosis. The patient has exhausted all conservative treatment at this time and now requires surgical intervention. The patient signed the consent after careful explanation of risks, benefits, complications, and alternatives for the surgical procedure. No guarantees were given nor implied. N.p.o. status was confirmed prior to taking the patient to the OR. PREPARATION: The patient was brought into the operating room table and was placed on the operating room table in a supine position. A time-out was performed for identification of the correct patient and the procedure. The patient received a total of 16 mL of 0.5% Marcaine plain in a V-block fashion to the right foot fourth digit. The right foot was then prepped and draped in a normal sterile manner and the procedure begun. Ankle tourniquet was inflated prior to starting the procedure. PROCEDURE: Attention was then drawn to the dorsal aspect of the right foot fourth digit where [place] incision was made extending from dorsal distal aspect of the second metatarsal head and plantar second digit using #15 blade. Incision was then extended down through the subcutaneous layers down to the level of bone. Using a bone clamp to stabilize the digit, the second digit was then disarticulated from the foot at the level of MTPJ. All the nonviable soft tissue was radically debrided down to the level of the healthy bleeding tissue distal aspect of the second metatarsal head was resected with dorsal distal to plantar proximal angle and was sent to pathology for proximal margin. All bone and soft tissues were sent for pathology at this time. The surgical site was then copiously irrigated with saline. Surgical site was then reapproximated subcutaneously using 3-0 Vicryl and 4-0 Vicryl. The skin layer was then brought together using 4-0 nylon. The surgical site was then dressed with Betadine-soaked Adaptic, 4x4, and Kerlix dressing. POSTOPERATIVE CONDITION: The patient tolerated the anesthesia and the procedure well and was escorted to the recovery room with neurovascular status intact to the right foot. The patient is to remain partial weightbearing to the heel in a surgical shoe. The patient will remain in house will continue to follow the patient. Upon discharge, the patient is to follow up in the clinic with Dr. Matthews. Tom Piña DPM Manny Matthews DPM
--- NOTE | 2017-05-27 08:24 | CP.PCM.DIS ---
Provider - Provider Date of Admission: 05/24/17 18:01 Attending physician: Alcides Roberts MD Time Spent in preparation of Discharge (in minutes): 15 Diagnosis - Discharge Diagnosis (1) Class 1 obesity with serious comorbidity and body mass index (BMI) of 34.0 to 34.9 in adult Status: Acute (2) DVT prophylaxis Status: Acute (3) Diabetes type 2, uncontrolled Status: Acute (4) Diabetic foot infection Status: Acute Hospital Course - Lab Results Lab Results: Micro Results 05/25/17 11:03 Foot - Right Gram Stain - Final 05/25/17 11:03 Foot - Right Wound Culture - Preliminary NO GROWTH AFTER 24 HOURS Most Recent Lab Values WBC 14.7 K/uL (4.8-10.8) H 05/25/17 05:30 RBC 3.31 Mil/uL (4.40-5.90) L 05/25/17 05:30 Hgb 9.2 g/dL (12.0-18.0) L 05/25/17 05:30 Hct 27.7 % (35.0-51.0) L 05/25/17 05:30 MCV 83.6 fl (80.0-94.0) 05/25/17 05:30 MCH 27.7 pg (27.0-31.0) 05/25/17 05:30 MCHC 33.1 g/dL (33.0-37.0) 05/25/17 05:30 RDW 12.0 % (11.5-14.5) 05/25/17 05:30 Plt Count 430 K/uL (130-400) H D 05/25/17 05:30 MPV 7.9 fl (7.2-11.7) 05/25/17 05:30 Neut % (Auto) 68.3 % (50.0-75.0) 05/25/17 05:30 Lymph % (Auto) 20.3 % (20.0-40.0) 05/25/17 05:30 [place] % (Auto) 7.2 % (0.0-10.0) 05/25/17 05:30 Eos % (Auto) 3.1 % (0.0-4.0) 05/25/17 05:30 Baso % (Auto) 1.1 % (0.0-2.0) 05/25/17 05:30 Neut # (Auto) 10.1 K/uL (1.8-7.0) H 05/25/17 05:30 Lymph # (Auto) 3.0 K/uL (1.0-4.3) 05/25/17 05:30 [place] # (Auto) 1.1 K/uL (0.0-0.8) H 05/25/17 05:30 Eos # (Auto) 0.5 K/uL (0.0-0.7) 05/25/17 05:30 Baso # (Auto) 0.2 K/uL (0.0-0.2) 05/25/17 05:30 Sodium 140 mmol/l (132-148) 05/25/17 05:30 Potassium 4.0 MMOL/L (3.6-5.0) 05/25/17 05:30 Chloride 102 mmol/L (98-107) 05/25/17 05:30 Carbon Dioxide 25 mmol/L (22-30) 05/25/17 05:30 Anion Gap 17 (10-20) 05/25/17 05:30 BUN 16 mg/dl (9-20) 05/25/17 05:30 Creatinine 0.9 mg/dl (0.8-1.5) 05/25/17 05:30 Est GFR ( Amer) > 60 05/25/17 05:30 Est GFR (Non-Af Amer) > 60 05/25/17 05:30 POC Glucose (mg/dL) 141 mg/dL (65-110) H 05/25/17 16:16 Random Glucose 187 mg/dL (75-110) H 05/25/17 05:30 Calcium 8.7 mg/dL (8.4-10.2) 05/25/17 05:30 Total Bilirubin 0.3 mg/dl (0.2-1.3) 05/25/17 05:30 AST 18 U/L (17-59) 05/25/17 05:30 ALT 24 U/L (21-72) 05/25/17 05:30 Alkaline Phosphatase 53 U/L (38-126) 05/25/17 05:30 Total Protein 6.6 G/DL (6.3-8.2) 05/25/17 05:30 Albumin 3.3 g/dL (3.5-5.0) L 05/25/17 05:30 Globulin 3.4 gm/dL (2.2-3.9) 05/25/17 05:30 Albumin/Globulin Ratio 1.0 (1.0-2.1) 05/25/17 05:30 - Hospital Course Hospital Course: iv anbx, glucose/pain ocntrol Discharge Exam - Head Exam Head Exam: ATRAUMATIC, NORMAL INSPECTION, NORMOCEPHALIC Discharge Plan - Follow Up Plan Condition: GOOD Disposition: TRANSF TO SNF Instructions: Amputation of the Foot or Toe Additional Instructions: final dx-dm foot ulcer, om foot, dm 2 f/u in [facility], meds per med rec, rted prn
== END 2017-05-25 16:45 ==
LOC: H.OPSURG 13:00 → H.MEDSURG1 18:01
PROVIDERS: ADMIT Family Medicine; ATTEND Family Medicine
PROC: 0Y6R0Z0 Detachment at Right 2nd Toe, Complete, Open Approach (ICD-10-PCS; principal; 2017-05-24 15:00)
DX: E11.69 Type 2 diabetes mellitus with other specified complication (principal); F20.0 Paranoid schizophrenia; L97.519 Non-pressure chronic ulcer of other part of right foot with unspecified severity; M86.9 Osteomyelitis, unspecified; E66.9 Obesity, unspecified; Z68.34 Body mass index [BMI] 34.0-34.9, adult; I10 Essential (primary) hypertension; E11.621 Type 2 diabetes mellitus with foot ulcer; E11.65 Type 2 diabetes mellitus with hyperglycemia; F17.200 Nicotine dependence, unspecified, uncomplicated